=== PATIENT | male | born 1950 | race Caucasian/White ===

== ENCOUNTER 2016-06-02 12:44 | Inpatient (IN) ==
--- NOTE | 2016-06-02 12:54 | Emergency Department Note ---
Disposition Clinical Impression: Decubitus ulcer Qualifiers: Pressure ulcer stage: unspecified pressure ulcer stage Qualified Code(s): L89.90 - Pressure ulcer of unspecified site, unspecified stage Cellulitis Qualifiers: Site of cellulitis: buttock Qualified Code(s): L03.317 - Cellulitis of buttock Disposition: Admitted As Inpatient Referrals: Unassigned,Provider [Non-Partnered Physician] - Forms: ED Satisfaction Letter Time of Disposition: 15:23 Wound/Laceration HPI - General Chief Complaint: ED Wound/Laceration Stated Complaint: wound infection Time Seen by Provider: 06/02/16 12:50 Source: patient, family Mode of arrival: other (Hospital bed) Limitations: no limitations Nursing Notes Reviewed: Yes Vital Signs Reviewed: Yes - History of Present Illness HPI Narrative: 65-year-old who has a decubitus ulcer was seen in wound clinic today and had significant debriding done. I spoke to who states there was tremendous amount of drainage or erythema the wound was significantly debrided and packed and dressing was placed and she would like the patient admitted for IV antibiotics and she will follow along. Onset (ago): day(s) Location: back Mechanism: other ( fell off a ladder several months ago and has had problems with a decubitus ulcer) Associated symptoms: Reports: fever Pain Severity: moderate - Related Data Home Medications Medication Instructions Recorded Confirmed Acetaminophen [Tylenol] 325 mg PO Q6HR PRN 05/16/16 06/02/16 Aspirin [Lo-Dose Aspirin EC] 81 mg PO DAILY 05/16/16 06/02/16 Atorvastatin [Lipitor] 20 mg PO DAILY 05/16/16 06/02/16 Baclofen [Lioresal] 10 mg PO BID 05/16/16 06/02/16 Calcium Polycarbophil [Fiber 625 mg PO BID 05/16/16 06/02/16 Laxative] Carvedilol [Coreg] 25 mg PO BID 05/16/16 06/02/16 Citalopram [CeleXA] 20 mg PO DAILY 05/16/16 06/02/16 Cyclobenzaprine [Flexeril] 10 mg PO TID PRN 05/16/16 06/02/16 Dabigatran [Pradaxa] 150 mg PO BID 05/16/16 06/02/16 Furosemide [Lasix] 20 mg PO DAILY 05/16/16 06/02/16 Gabapentin [Neurontin] 600 mg PO TID 05/16/16 06/02/16 Guaifenesin [Mucinex] 400 mg PO TID 05/16/16 06/02/16 Lactobacillus Acidophilus 1 cap PO TID 05/16/16 06/02/16 [Acidophilus Lactobacillus] Lisinopril [Zestril] 5 mg PO DAILY 05/16/16 06/02/16 Melatonin/Pyridoxine HCl (B6) 6 mg PO HS 05/16/16 06/02/16 [Melatonin 3 mg Tablet] OxyCODONE Immed Rel [Roxicodone 5 5 mg PO Q4HR PRN 05/16/16 06/02/16 MG] Previous Rx's Medication Instructions Recorded Collagenase Oint [Santyl] 1 appl TP DAILY #2 tube 05/17/16 Gentamicin Oint [Garamycin] 1 appl TP DAILY #2 tube 05/17/16 Allergies Allergy/AdvReac Type Severity Reaction Status Date / Time No Known Allergies Allergy Verified 06/02/16 12:52 Constitutional: Reports: fever, chills Eyes: Denies: eye pain, eye discharge, vision change ENT ED: Denies: ear pain, throat pain, dental pain, hearing loss, epistaxis, congestion, dysphagia Cardiovascular: Denies: chest pain, palpitations, dyspnea on exertion, edema, syncope Respiratory: Denies: cough, dyspnea, wheezes, hemoptysis, stridor Gastrointestinal: Denies: abdominal pain, nausea, vomiting, diarrhea, constipation, hematemesis, melena, hematochezia Genitourinary: Denies: urgency, dysuria, frequency, hematuria Musculoskeletal: Reports: back pain. Denies: neck pain, arthralgia, myalgia Integumentary: Denies: rash, abrasion, lesions Neurological: Denies: headache, weakness, numbness, paresthesias, confusion, abnormal gait, vertigo Psychiatric: Denies: anxiety, depression, suicidal thoughts, homicidal thoughts , auditory hallucinations, visual hallucinations Endocrine: Denies: fatigue Hematological/Lymphatic: Denies: easy bleeding, easy bruising Allergic/Immunologic: Denies: facial swelling, urticaria Past Medical History - Past Medical History Medical history: Reports: hyperlipidemia, hypertension, pulmonary embolus, sudden cardiac , other Surgical history: Reports: IVC Filter, orthopedic, other, tracheostomy, other Psychiatric history: Reports: depression - Social History Smoking Status: Former smoker Smokeless Tobacco Status: No Alcohol use: Reports: rarely Drug use: Reports: none Physical Exam - General Limitations: no limitations General appearance: alert, in no apparent distress - Head Head exam: atraumatic, normocephalic, normal inspection - Eye Eye exam: Present: normal appearance, PERRL, EOMI - ENT ENT exam: normal exam, normal oropharynx, mucous membranes moist - Neck Neck exam: Present: normal inspection, full ROM, trachea midline - Chest Chest inspection: Present: normal inspection, symmetric chest wall rise - Respiratory Respiratory exam: Present: normal lung sounds bilaterally - Cardiovascular Cardiovascular exam: Present: regular rate, normal rhythm, normal heart sounds - Abdominal Exam Abdominal exam: Present: soft, Non-Tender. Absent: tenderness, distention, guarding, rebound, rigidity Course Course Narrative: 65-year-old gentleman who comes in with this infected decubitus ulcer that was debrided today by surgery. Surgery feels patient should be admitted and requested admission to the hospitalist. The antibiotics was given. - Consultations Consultation #1: Discussed with , admit. Time: 15:21 Vital Signs Temperature 98.3 F 06/02/16 12:52 Pulse Rate 78 06/02/16 12:52 Respiratory Rate 16 06/02/16 12:52 Blood Pressure 113/66 06/02/16 12:52 O2 Sat by Pulse Oximetry 94 L 06/02/16 12:52 Temperature 98.3 F 06/02/16 12:52 Pulse Rate 81 06/02/16 13:58 Respiratory Rate 17 06/02/16 13:58 Blood Pressure 111/53 06/02/16 13:58 O2 Sat by Pulse Oximetry 95 06/02/16 13:58 Oxygen Delivery Oxygen Delivery Room Air Wound/Laceration - Lab Data Result diagrams: 06/02/16 13:39 06/02/16 13:39 Lab Results 06/02/16 06/02/16 06/02/16 Range/Units 13:39 13:39 13:39 WBC 15.6 H (4.3-11.1) K/mcL RBC 3.41 L (4.19-5.50) M/mcL Hgb 8.8 L (12.9-16.9) g/dL Hct 28.3 L (37.5-50.1) % MCV 83.0 (83.0-100.0) fL MCH 25.8 L (28.0-33.3) pg MCHC 31.1 L (31.6-35.5) g/dL RDW 15.5 H (11.5-14.5) % Plt Count 303 (140-400) K/mcL MPV 9.2 L (9.4-12.4) fL Immature Gran % 1.3 (0-4) % Seg Neutrophils % 86.2 % Lymphocytes % 4.4 % Monocytes % 7.4 % Eosinophils % 0.4 % Basophils % 0.3 % Neutrophils # 13.5 H (1.6-8.9) K/mcL Lymphocytes # 0.7 (0.6-4.6) K/mcL Monocytes # 1.2 (0.0-1.3) K/mcL Eosinophils # 0.1 (0.0-0.6) K/mcL Basophils # 0.1 (0.0-0.2) K/mcL Reactive Lymphocytes Present A (Not Present) Platelet Estimate Normal (Normal) Immature Plt Fraction 1.4 (1.1-6.1) % ESR >= 130 H (0-10) mm/hr Sodium 132 L (136-145) mEq/L Potassium 4.2 (3.5-4.5) mEq/L Chloride 98 (98-109) mEq/L Carbon Dioxide 26 (19-29) mEq/L BUN 12 (8-26) mg/dL Creatinine 0.46 L (0.72-1.25) mg/dL Est GFR ( Amer) > 60 (> 60) Est GFR (Non-Af Amer) > 60 (> 60) BUN/Creatinine Ratio 26 (6-26) Glucose 108 H (70-99) mg/dL Calculated Osmolality 274 L (280-300) Calcium 8.5 L (8.6-10.8) mg/dL Urine Color (Yellow) Urine Clarity (Clear) Urine pH (5.0-8.0) pH Units Ur Specific [place] (1.010-1.025) Urine Protein (Neg-Trace) mg/dL Urine Glucose (UA) (Normal) mg/dL Urine Ketones (Negative) mg/dL Urine Blood (Negative) Urine Nitrite (Negative) Urine Bilirubin (Negative) Urine Urobilinogen (Normal) mg/dL Ur Leukocyte Esterase (Negative) Urine Microscopic RBC (0-3) per hpf Urine Microscopic WBC (0-3) per hpf Ur Squamous Epith Cells (None-Few) per lpf Urine Bacteria (None-Few) per hpf Hyaline Casts (None-Few) per lpf Ur Culture Indicated? (NO) 06/02/16 Range/Units 13:48 WBC (4.3-11.1) K/mcL RBC (4.19-5.50) M/mcL Hgb (12.9-16.9) g/dL Hct (37.5-50.1) % MCV (83.0-100.0) fL MCH (28.0-33.3) pg MCHC (31.6-35.5) g/dL RDW (11.5-14.5) % Plt Count (140-400) K/mcL MPV (9.4-12.4) fL Immature Gran % (0-4) % Seg Neutrophils % % Lymphocytes % % Monocytes % % Eosinophils % % Basophils % % Neutrophils # (1.6-8.9) K/mcL Lymphocytes # (0.6-4.6) K/mcL Monocytes # (0.0-1.3) K/mcL Eosinophils # (0.0-0.6) K/mcL Basophils # (0.0-0.2) K/mcL Reactive Lymphocytes (Not Present) Platelet Estimate (Normal) Immature Plt Fraction (1.1-6.1) % ESR (0-10) mm/hr Sodium (136-145) mEq/L Potassium (3.5-4.5) mEq/L Chloride (98-109) mEq/L Carbon Dioxide (19-29) mEq/L BUN (8-26) mg/dL Creatinine (0.72-1.25) mg/dL Est GFR ( Amer) (> 60) Est GFR (Non-Af Amer) (> 60) BUN/Creatinine Ratio (6-26) Glucose (70-99) mg/dL Calculated Osmolality (280-300) Calcium (8.6-10.8) mg/dL Urine Color Yellow (Yellow) Urine Clarity Clear (Clear) Urine pH 7.0 (5.0-8.0) pH Units Ur Specific [place] 1.012 (1.010-1.025) Urine Protein Negative (Neg-Trace) mg/dL Urine Glucose (UA) Normal (Normal) mg/dL Urine Ketones Negative (Negative) mg/dL Urine Blood Large H (Negative) Urine Nitrite Negative (Negative) Urine Bilirubin Negative (Negative) Urine Urobilinogen 2.0 H (Normal) mg/dL Ur Leukocyte Esterase Negative (Negative) Urine Microscopic RBC 50-100 H (0-3) per hpf Urine Microscopic WBC 0-3 (0-3) per hpf Ur Squamous Epith Cells Moderate H (None-Few) per lpf Urine Bacteria None Seen (None-Few) per hpf Hyaline Casts None Seen (None-Few) per lpf Ur Culture Indicated? NO (NO) - EKG Data EKG attestation: Yes I reviewed and interpreted this EKG. EKG shows normal: sinus rhythm Rate: normal Rhythm: NSR Interpretation: no acute changes
[2016-06-02] MEDS ORDERED: *HR* Morphine 2 MG/ML SYRINGE IVP ONE (13:41)
[2016-06-02] MEDS ORDERED: *HR* Promethazine 25 MG/ML VIAL IVP ONE (13:41)
[2016-06-02 13:50] LABS: Basophils % 0.3 %; Eosinophils # 0.1 K/mcL (0.0-0.6); Eosinophils % 0.4 %; Hematocrit 28.3 % (37.5-50.1); Hemoglobin 8.8 g/dL (12.9-16.9); Immature Granulocytes % 1.3 % (0-4); Immature Platelets 1.4 % (1.1-6.1); Lymphocytes # 0.7 K/mcL (0.6-4.6); Lymphocytes % 4.4 %; Mean Corpuscular HGB Conc 31.1 g/dL (31.6-35.5); Mean Corpuscular Hemoglobin 25.8 pg (28.0-33.3); Mean Platelet Volume 9.2 fL (9.4-12.4); Monocytes # 1.2 K/mcL (0.0-1.3); Monocytes % 7.4 %; Platelet Count 303 K/mcL (140-400); Red Blood Count 3.41 M/mcL (4.19-5.50); Red Cell Distribution Width 15.5 % (11.5-14.5); Segmented Neutrophils % 86.2 %
[2016-06-02 13:52] LABS: Basophils # 0.1 K/mcL (0.0-0.2); Neutrophils # 13.5 K/mcL (1.6-8.9)
[2016-06-02 13:58] LABS: Bilirubin,Urine Negative (Negative); Blood,Urine Large (Negative); Clarity,Urine Clear (Clear); Color,Urine Yellow (Yellow); Glucose,Urine (UA) Normal (Normal); Ketones,Urine Negative (Negative); Leukocyte Esterase,Urine Negative (Negative); Nitrite,Urine Negative (Negative); Protein,Urine Negative (Neg-Trace); Specific Gravity,Urine 1.012 (1.010-1.025)
[2016-06-02 14:02] LABS: Bacteria,Urine None Seen per hpf (None-Few); Hyaline Casts,Urine None Seen per lpf (None-Few); RBC,Urine 50-100 per hpf (0-3); Squamous Epithelial Cell,Urine Moderate per lpf (None-Few); WBC,Urine 0-3 per hpf (0-3)
[2016-06-02 14:04] LABS: BUN/Creatinine Ratio 26 (6-26); Blood Urea Nitrogen 12 mg/dL (8-26); Calcium 8.5 mg/dL (8.6-10.8); Carbon Dioxide 26 mEq/L (19-29); Chloride 98 mEq/L (98-109); Glucose 108 mg/dL (70-99); Osmolality,Calculated 274 (280-300); Potassium 4.2 mEq/L (3.5-4.5); Sodium 132 mEq/L (136-145); eGFR For African Americans > 60 (> 60); eGFR For Non-African Americans > 60 (> 60)
[2016-06-02] MEDS ORDERED: Piperacillin/Tazobactam 3.375 GM in D5% in Water (Mini-Bag+) 100 ML IVPB ONE (14:14)
[2016-06-02 14:31] LABS: Platelet Estimate Normal (Normal); Reactive Lymphocytes Present (Not Present)
--- NOTE | 2016-06-02 15:36 | Internal Med History&Physical ---
<Luke Yarbrough - Last Filed: 06/02/16 16:35> Date of Encounter: 06/02/16 Time of Encounter: 15:00 Assessment and Plan (1) Cellulitis Current visit: Yes Status: Acute - Secondary to sacral decubitus ulcer. - Leukocytosis noted. - Wound culture pending. - Will start Unazyn IV q6H. - Continue to monitor. Qualifiers: Site of cellulitis: buttock Qualified Code(s): L03.317 - Cellulitis of buttock (2) Decubitus ulcer Current visit: No Status: Chronic - Chronic sacral decubitus ulcer status some debridement & packing at wound care clinic. - Dr Mayorga on board and plans to reevaluate possible need of more surgical debridement while treating patient with IV antibiotic. Qualifiers: Pressure ulcer stage: stage III Qualified Code(s): L89.93 - Pressure ulcer of unspecified site, stage 3 (3) Anemia Current visit: No Status: Chronic - Chronic normocytic anemia with Hgb 8.8 today. - Continue to monitor H&H. Qualifiers: Anemia type: unspecified type Qualified Code(s): D64.9 - Anemia, unspecified (4) Paraplegia Current visit: No Status: Chronic - Due to back injury secondary to fall in November 2015. (5) DVT prophylaxis Current visit: Yes Status: Acute - Will hold Pradaxa for now given potential need of more surgical debridement. - Start SQ heparin. Internal Medicine - H&P: HPI Chief complaint: Wound infection Admitted From: Home Plans for Post Hospital Care: Home History of present illness: Mr. Orellana is a 65 year old male with PMH of HTN and quadriplegic secondary a fall in November 2015. Patient was sent by Dr. Mayorga from wound care clinic to ED. Per , the sacral decubitus ulcer has tremendous amount of drainage and erythema. The wound was debrided and packed and dressing was placed but she would like the patient admitted for IV antibiotics and she will reevaluate for possible need of debridement in OR. Due to his back injury, patient doesn't feel any pain from the sacral decubitus ulcer. Per patient's at bedside, Dr. Mayorga even mentioned that patient may not need anesthesia for surgical debridement. Patient denies fever, chills, nausea, vomiting, chest pain, shortness of breath, cough, abdominal pain, diarrhea. Patient does have chronic neck pain. Patient denies known cardiac problem. But patient's mentioned that patient developed PE during his stay at [facility] and leaded cardiac dysfunction requiring ECMO for several days. Past Med Surg Social Fam HX - Past Medical History Medical history: hyperlipidemia, hypertension, pulmonary embolus, sudden cardiac , other Psychiatric history: depression - Past Surgical History Surgical History: IVC Filter, orthopedic, other, tracheostomy, other - Social History Smoking Status: Former smoker Smokeless Tobacco Status: No Alcohol use: rarely Drug use: none - Family History Mother Living Status: Hx Family Endocrine Disorder: Yes (diabetic) Internal Medicine - H&P: Meds Acetaminophen [Tylenol] 325 mg PO Q6HR PRN 05/16/16 [History] Aspirin [Lo-Dose Aspirin EC] 81 mg PO DAILY 05/16/16 [History] Atorvastatin [Lipitor] 20 mg PO DAILY 05/16/16 [History] Baclofen [Lioresal] 10 mg PO BID 05/16/16 [History] Calcium Polycarbophil [Fiber Laxative] 625 mg PO BID 05/16/16 [History] Carvedilol [Coreg] 25 mg PO BID 05/16/16 [History] Citalopram [CeleXA] 20 mg PO DAILY 05/16/16 [History] Cyclobenzaprine [Flexeril] 10 mg PO TID PRN 05/16/16 [History] Dabigatran [Pradaxa] 150 mg PO BID 05/16/16 [History] Furosemide [Lasix] 20 mg PO DAILY 05/16/16 [History] Gabapentin [Neurontin] 600 mg PO TID 05/16/16 [History] Guaifenesin [Mucinex] 400 mg PO TID 05/16/16 [History] Lactobacillus Acidophilus [Acidophilus Lactobacillus] 1 cap PO TID 05/16/16 [ History] Lisinopril [Zestril] 5 mg PO DAILY 05/16/16 [History] Melatonin/Pyridoxine HCl (B6) [Melatonin 3 mg Tablet] 6 mg PO HS 05/16/16 [ History] OxyCODONE Immed Rel [Roxicodone 5 MG] 5 mg PO Q4HR PRN 05/16/16 [History] Collagenase Oint [Santyl] 1 appl TP DAILY #2 tube 05/17/16 [Rx] Gentamicin Oint [Garamycin] 1 appl TP DAILY #2 tube 05/17/16 [Rx] Allergies No Known Allergies Allergy (Verified 06/02/16 12:52) All Systems PM: A 10-system review of systems was performed and is negative for pertinent findings except as documented above in the HPI. - Constitutional Constitutional: no anorexia, no chills, no fever(s) - EENT Eyes: no change in vision Ears: no decreased hearing Nose, mouth and throat: no dysphagia - Cardiovascular Cardiovascular ROS IM: edema, no chest pain, no palpitations, no syncope - Respiratory Respiratory: no cough, no dyspnea, no hemoptysis - Gastrointestinal Gastrointestinal: no abdominal pain, no diarrhea, no nausea, no vomiting - Musculoskeletal Musculoskeletal ROS IM: neck pain - Integumentary Integumentary IM: skin ulcer (Sacral decubitus ulcer) - Neurological Neurological ROS: other (Patient is quadraplegic and has no sensation below upper abdomen.) - Hematologic/Lymphatic Hematologic/Lymphatic: no easy bleeding, no easy bruising - Constitutional Vitals: Temp Pulse Resp BP Pulse Ox 98.3 F 81 17 111/53 95 06/02/16 12:52 06/02/16 13:58 06/02/16 13:58 06/02/16 13:58 06/02/16 13:58 General appearance: Present: cooperative, A&O X 3, no acute distress, answers questions appropriately - Head Head exam: Present: atraumatic, normocephalic - Eye Eye exam: Present: PERRL, conjuntiva pink, sclera anicteric Pupils: Present: PERRL - Neck Neck exam general surgery: Present: supple, trachea midline. Absent: lymphadenopathy - Respiratory Respiratory exam: Present: CTAB. Absent: accessory muscle use, rales, rhonchi, wheezes - Cardiovascular Cardiovascular exam: Present: RRR, +S1, +S2. Absent: diastolic murmur, gallop, rubs, systolic murmur - GI/Abdominal GI/Abdominal exam: Present: normal bowel sounds, soft, no peritoneal signs. Absent: distended, tenderness - Extremities Exam Extremities exam: Present: warm, radial pulses palpable and symetrical. Absent : calf tenderness, cyanotic, pedal edema - Neurological Exam Neurological exam: Present: alert, oriented X3 Additional comments: Patient is quadraplegic and has no sensation below upper abdomen. - Skin Additional comments: Sacral decubitus ulcers covered with dressing. Internal Med - H&P Results - Labs CBC & Chem 7: 06/02/16 13:39 06/02/16 13:39 Labs: Short CBC 06/02/16 Range/Units 13:39 WBC 15.6 H (4.3-11.1) K/mcL Hgb 8.8 L (12.9-16.9) g/dL Hct 28.3 L (37.5-50.1) % Plt Count 303 (140-400) K/mcL Neutrophils # 13.5 H (1.6-8.9) K/mcL BMP 06/02/16 13:39 Sodium 132 L Potassium 4.2 Chloride 98 Carbon Dioxide 26 BUN 12 Creatinine 0.46 L Glucose 108 H Calcium 8.5 L Urine 06/02/16 Range/Units 13:48 Urine Color Yellow (Yellow) Urine Clarity Clear (Clear) Urine pH 7.0 (5.0-8.0) pH Units Ur Specific [place] 1.012 (1.010-1.025) Urine Protein Negative (Neg-Trace) mg/dL Urine Glucose (UA) Normal (Normal) mg/dL - Impressions ITS Impressions Chest X-Ray 06/02/16 12:50 IMPRESSION: No acute cardiopulmonary disease. D/ / Xavier Almaraz MD / Xavier Almaraz MD Interpreting Provider: Xavier Almaraz MD <Jeremie Maier - Last Filed: 06/02/16 17:49> Date of Encounter: 06/02/16 Internal Medicine - H&P: HPI History of present illness: Mr. Orellana is a 65 year old male All Systems PM: A 10-system review of systems was performed and is negative for pertinent findings except as documented above in the HPI. - Constitutional Vitals: Temp Pulse Resp BP Pulse Ox 98.9 F 84 16 117/66 96 06/02/16 17:42 06/02/16 17:42 06/02/16 17:42 06/02/16 17:42 06/02/16 17:42 Internal Med - H&P Results - Labs CBC & Chem 7: 06/02/16 13:39 06/02/16 13:39 - Attending Attestation I have seen and examined this patient independently. I have discussed the case with the resident, Dr. Yarbrough. I agree with the data gathering in the HPI, physical examination findings, assessment and plan as documented by the resident. Infected sacral wound, will give iv antibiotics (unasyn), consult surgery for possible debridement. D/W surgical team, recommends to hold pradaxa for now, will give heparin for dvt prophylaxis in the meantime. The plan of care was discussed in detail with the patient and family member, they expressed understanding.
[2016-06-02] MEDS: Lactobacillus 1 EACH CAP.SPRINK PO SCH ×2 (16:40→20:35)
[2016-06-02] MEDS: Ampicillin/Sulbactam 3,000 MG in 0.9 % Sodium Chloride Mini Bag 100 ML IVPB SCH (20:31)
[2016-06-02] MEDS: GuaiFENesin Liq 200 MG/10 ML UDC PO SCH (20:35)
[2016-06-02] MEDS: Baclofen 10 MG TABLET PO SCH (20:35)
[2016-06-03] MEDS: *HR* Heparin 5,000 UNIT/ML VIAL SQ SCH ×3 (00:31→18:03)
[2016-06-03] MEDS: Ampicillin/Sulbactam 3,000 MG in 0.9 % Sodium Chloride Mini Bag 100 ML IVPB SCH ×4 (01:50→21:46)
[2016-06-03] MEDS: *HR* OxyCODONE Immed Rel 5 MG TABLET PO PRN ×2 (05:10→14:01)
[2016-06-03 06:28] LABS: Basophils # 0.1 K/mcL (0.0-0.2); Basophils % 0.5 %; Eosinophils # 0.2 K/mcL (0.0-0.6); Eosinophils % 1.3 %; Hematocrit 26.1 % (37.5-50.1); Hemoglobin 8.3 g/dL (12.9-16.9); Immature Granulocytes % 2.2 % (0-4); Lymphocytes # 1.3 K/mcL (0.6-4.6); Lymphocytes % 10.7 %; Mean Corpuscular HGB Conc 31.8 g/dL (31.6-35.5); Mean Corpuscular Hemoglobin 26.2 pg (28.0-33.3); Mean Corpuscular Volume 82.3 fL (83.0-100.0); Mean Platelet Volume 9.6 fL (9.4-12.4); Monocytes # 0.8 K/mcL (0.0-1.3); Neutrophils # 9.3 K/mcL (1.6-8.9); Platelet Count 275 K/mcL (140-400); Red Blood Count 3.17 M/mcL (4.19-5.50); Red Cell Distribution Width 15.3 % (11.5-14.5); Segmented Neutrophils % 78.3 %
[2016-06-03 06:41] LABS: Platelet Estimate Normal (Normal)
[2016-06-03 06:42] LABS: Reactive Lymphocytes Present (Not Present)
[2016-06-03 06:43] LABS: Alanine Aminotransferase 58 Units/L (0-55); Albumin 1.7 g/dL (3.5-5.0); Albumin/Globulin Ratio 0.4 (1.1-2.2); Alkaline Phosphatase 225 Units/L (38-126); Aspartate Amino Transferase 47 Units/L (5-34); BUN/Creatinine Ratio 24 (6-26); Bilirubin,Total 0.5 mg/dL (0.2-1.2); Blood Urea Nitrogen 12 mg/dL (8-26); Calcium 8.5 mg/dL (8.6-10.8); Carbon Dioxide 27 mEq/L (19-29); Chloride 100 mEq/L (98-109); Globulin 4.2 g/dL (2.4-3.5); Glucose 95 mg/dL (70-99); Osmolality,Calculated 278 (280-300); Sodium 134 mEq/L (136-145); Total Protein 5.9 g/dL (6.0-8.3); eGFR For African Americans > 60 (> 60); eGFR For Non-African Americans > 60 (> 60)
[2016-06-03] MEDS ORDERED: 0.9 % Sodium Chloride Mini Bag 100 ML ONE (08:23)
[2016-06-03] MEDS: GuaiFENesin Liq 200 MG/10 ML UDC PO SCH ×5 (08:30→21:47)
[2016-06-03] MEDS: Furosemide 20 MG TABLET PO SCH ×2 (08:30→09:27)
[2016-06-03] MEDS: Lactobacillus 1 EACH CAP.SPRINK PO SCH ×3 (08:30→21:47)
[2016-06-03] MEDS: Baclofen 10 MG TABLET PO SCH ×3 (08:30→21:47)
[2016-06-03] MEDS ORDERED: Gentamicin Oint 15 GM TUBE TP SCH (09:00)
[2016-06-03] MEDS ORDERED: Aspirin Enteric Coated 81 MG Tablet PO SCH (09:00)
--- NOTE | 2016-06-03 12:59 | Internal Med Progress Note ---
<CorcoranLuther Mp - Last Filed: 06/03/16 13:12> Date of Encounter: 06/03/16 Time of Encounter: 13:00 - Assessment and plan (1) Cellulitis Current Visit: Yes Status: Acute Assessment and plan: Cellulitis 2/2 stage 4 decubitis ulcer. Afebrile, vitals WNL. Erythematous, tender. Topical Gentamycin and IV unasyn IVq6h Wound culture pending Leukocytosis improving Possibly to OR today for debridement per surgery. Pain control monitor cbc Qualifiers: Site of cellulitis: other site Qualified Code(s): L03.818 - Cellulitis of other sites (2) Pressure ulcer of sacral region, stage 4 Current Visit: No Status: Acute Assessment and plan: Chronic sacral decubitus ulcer status some debridement & packing at wound care clinic. Dr Mayorga on board and plans to reevaluate possible need of more surgical debridement while treating patient with IV antibiotics (3) Anemia Current Visit: No Status: Chronic Assessment and plan: Appears to have new normocytic anemia. Hgb trending down. 8.8 to 8.3 today. Iron studies pending may need blood tx if Hgb <7 Qualifiers: Anemia type: unspecified type Qualified Code(s): D64.9 - Anemia, unspecified (4) Paraplegia Current Visit: No Status: Chronic Assessment and plan: Due to back injury secondary to fall in November 2015. Continue to hold Pradaxa as may need surgical debridement. SQ heparin. (5) DVT prophylaxis Current Visit: Yes Status: Acute - Subjective Interval history: Patient seen and examined. 65 yo paraplegic with stage 4 decubitis ulcer. Was seen in outpatient wound clinic by Dr. Mayorga and sent to ED for admission d/t ulcer. Patient laying in bed in mild distress. at bedside, who is his primary computer support specialist. States since he became paraplegic this summer he goes between being extremely hot/sweaty, to extremely cold often. Pt. states minor pain right now. Vital signs stable. Afebrile. - Constitutional Vitals: Temp Pulse Resp BP Pulse Ox 98.1 F 70 16 119/70 97 06/03/16 12:40 06/03/16 12:40 06/03/16 12:40 06/03/16 12:40 06/03/16 12:40 General appearance: Present: cooperative, A&O X 3, no acute distress, answers questions appropriately - Head Head exam: Present: atraumatic, normocephalic - Eye Eye exam: Present: PERRL, conjuntiva pink, sclera anicteric Pupils: Present: PERRL - Neck Neck exam general surgery: Present: supple, trachea midline. Absent: lymphadenopathy - Respiratory Respiratory exam: Present: CTAB. Absent: accessory muscle use, rales, rhonchi, wheezes - Cardiovascular Cardiovascular exam: Present: RRR, +S1, +S2. Absent: diastolic murmur, gallop, rubs, systolic murmur - GI/Abdominal GI/Abdominal exam: Present: normal bowel sounds, soft, no peritoneal signs. Absent: distended, tenderness - Extremities Exam Extremities exam: Absent: full ROM, normal inspection (paraplegic. B/l LE atrophy) - Skin Skin exam: Present: dry, intact Internal Medicine: Result - Labs CBC & Chem 7: 06/03/16 06:05 06/03/16 06:05 Labs: Short CBC 06/03/16 Range/Units 06:05 WBC 11.9 H (4.3-11.1) K/mcL Hgb 8.3 L (12.9-16.9) g/dL Hct 26.1 L (37.5-50.1) % Plt Count 275 (140-400) K/mcL Neutrophils # 9.3 H (1.6-8.9) K/mcL BMP 06/03/16 06:05 Sodium 134 L Potassium 4.0 Chloride 100 Carbon Dioxide 27 BUN 12 Creatinine 0.50 L Glucose 95 Calcium 8.5 L Liver Function 06/03/16 Range/Units 06:05 Total Bilirubin 0.5 (0.2-1.2) mg/dL AST 47 H (5-34) Units/L ALT 58 H (0-55) Units/L Alkaline Phosphatase 225 H (38-126) Units/L Albumin 1.7 L (3.5-5.0) g/dL Consult Discharge Plan - Plan Referrals: Anna Dunham, DREDGE OPERATOR [Primary Care Provider] - <Sesar Oquendo - Last Filed: 06/03/16 13:58> Date of Encounter: 06/03/16 - Constitutional Vitals: Temp Pulse Resp BP Pulse Ox 98.1 F 70 16 119/70 97 06/03/16 12:40 06/03/16 12:40 06/03/16 12:40 06/03/16 12:40 06/03/16 12:40 Internal Medicine: Result - Labs CBC & Chem 7: 06/03/16 06:05 06/03/16 06:05 Labs: Short CBC 06/03/16 Range/Units 06:05 WBC 11.9 H (4.3-11.1) K/mcL Hgb 8.3 L (12.9-16.9) g/dL Hct 26.1 L (37.5-50.1) % Plt Count 275 (140-400) K/mcL Neutrophils # 9.3 H (1.6-8.9) K/mcL BMP 06/03/16 06:05 Sodium 134 L Potassium 4.0 Chloride 100 Carbon Dioxide 27 BUN 12 Creatinine 0.50 L Glucose 95 Calcium 8.5 L Liver Function 06/03/16 Range/Units 06:05 Total Bilirubin 0.5 (0.2-1.2) mg/dL AST 47 H (5-34) Units/L ALT 58 H (0-55) Units/L Alkaline Phosphatase 225 H (38-126) Units/L Albumin 1.7 L (3.5-5.0) g/dL - Attending Attestation I examined this patient and my medical decision-making was reviewed with Dr. Corcoran. I agree with the documented findings, disposition and treatment plan as described except to the extent set forth below. Pt. reports feeling cold and having chills. CTAB. 1. Stage IV Decub ulcer - For OR tomorrow. Surgery on board. IV abx. High risk due to need for surgical intervention for treatment of his infection and need for IV abx. 2. Chronic anemia Patient does not have DM-2, CKD, CHF or CAD. He is at low risk for a low risk procedure. Medically optimized for surgery tomorrow. Sesar Oquendo MD
--- NOTE | 2016-06-03 13:42 | General Surgery Consult Note ---
Date of Encounter: 06/03/16 Time of Encounter: 12:00 Assessment and Plan (1) Leukocytosis Current Visit: Yes Status: Acute due to infected sacral wound, on abx per hospitalist, will trend wbc count, is decreasing Qualifiers: Leukocytosis type: unspecified Qualified Code(s): D72.829 - Elevated white blood cell count, unspecified (2) History of pulmonary embolism Current Visit: Yes Status: Acute hold pradax for OR tomorrow, on heparin sq (3) Cellulitis Current Visit: Yes Status: Acute continue Abx Qualifiers: Site of cellulitis: other site Qualified Code(s): L03.818 - Cellulitis of other sites (4) Pressure ulcer of sacral region, stage 4 Current Visit: No Status: Acute continue BID Dakins 0.25% moist kerlix packing into wound, covered with ABD's and secure with medipore tape will plan further OR debridement tomorrow, risks and benefits discussed and they wish to proceed History of Present Illness Consult date: 06/03/16 Reason for consult: wound care History of present illness: Pt is a 65 yo male s/p traumatic fall this summer with resulting paraplegia. He presented to my wound care office yesterday with a large sacral infected and necrotic foul smelling wound. I was able to debride a large amount of the necrosis yesterday at bedside at wound care but patient was on pradaxa. He had surrounding cellulitis to the wound as was sent to the ER for admission for IV antibiotics. He has had the wound present in some form for a few weeks now. Wound care has been santyl and gentamicin and home care has been seeing patient weekly. Past Med Surg Social Fam HX - Past Medical History Medical history: hyperlipidemia, hypertension, pulmonary embolus, sudden cardiac , other Psychiatric history: depression - Past Surgical History Surgical History: IVC Filter, orthopedic, other, tracheostomy, other - Social History Smoking Status: Former smoker Smokeless Tobacco Status: No Alcohol use: rarely Drug use: none - Family History Mother Living Status: Hx Family Endocrine Disorder: Yes (diabetic) Medications and Allergies Acetaminophen [Tylenol] 325 mg PO Q6HR PRN 05/16/16 [History] Aspirin [Lo-Dose Aspirin EC] 81 mg PO DAILY 05/16/16 [History] Atorvastatin [Lipitor] 20 mg PO DAILY 05/16/16 [History] Baclofen [Lioresal] 10 mg PO BID 05/16/16 [History] Calcium Polycarbophil [Fiber Laxative] 625 mg PO BID 05/16/16 [History] Carvedilol [Coreg] 25 mg PO BID 05/16/16 [History] Citalopram [CeleXA] 20 mg PO DAILY 05/16/16 [History] Cyclobenzaprine [Flexeril] 10 mg PO TID PRN 05/16/16 [History] Dabigatran [Pradaxa] 150 mg PO BID 05/16/16 [History] Furosemide [Lasix] 20 mg PO DAILY 05/16/16 [History] Gabapentin [Neurontin] 600 mg PO TID 05/16/16 [History] Guaifenesin [Mucinex] 400 mg PO TID 05/16/16 [History] Lactobacillus Acidophilus [Acidophilus Lactobacillus] 1 cap PO TID 05/16/16 [ History] Lisinopril [Zestril] 5 mg PO DAILY 05/16/16 [History] Melatonin/Pyridoxine HCl (B6) [Melatonin 3 mg Tablet] 6 mg PO HS 05/16/16 [ History] OxyCODONE Immed Rel [Roxicodone 5 MG] 5 mg PO Q4HR PRN 05/16/16 [History] Collagenase Oint [Santyl] 1 appl TP DAILY #2 tube 05/17/16 [Rx] Gentamicin Oint [Garamycin] 1 appl TP DAILY #2 tube 05/17/16 [Rx] Allergies No Known Allergies Allergy (Verified 06/02/16 12:52) Review of Systems All systems PM: A 10-system review of systems was performed and is negative for pertinent findings except as documented above in the HPI. General Surgery Exam Initial Vital Signs Temp Pulse Resp BP Pulse Ox 98.3 F 78 16 113/66 94 L 06/02/16 12:52 06/02/16 12:52 06/02/16 12:52 06/02/16 12:52 06/02/16 12:52 - General physical appearance well developed, well nourished, no distress - Eyes PERRL, normal ocular movement - ENT normal mucosa, atraumatic, normocephalic - Neck trachea midline - Respiratory normal expansion, clear to auscultation - Cardiovascular Cardiovascular exam: Present: RRR, no murmurs/rubs/gallops - Abdomen Abdomen general surgery: Present: bowel sounds present, soft, non tender - Integumentary Integumentary general surgery: Present: other (large foul smelling necrotic sacral wound 14 cm L x 13 cm W x 4 cm deep with 95% slough and 5 % granulation tissue, large amount serous drainage) - Neurologic Present: CN 2-12 grossly intact - Musculoskeletal Present: other (quadraplegia) - Psychiatric Psychiatric general surgery: Present: A&Ox3, speech is normal Exam Initial Vital Signs Temp Pulse Resp BP Pulse Ox 98.3 F 78 16 113/66 94 L 06/02/16 12:52 06/02/16 12:52 06/02/16 12:52 06/02/16 12:52 06/02/16 12:52 Results - Labs 06/03/16 06:05 06/03/16 06:05 Short CBC 06/03/16 06/02/16 Range/Units 06:05 13:39 WBC 11.9 H 15.6 H (4.3-11.1) K/mcL Hgb 8.3 L 8.8 L (12.9-16.9) g/dL Hct 26.1 L 28.3 L (37.5-50.1) % Plt Count 275 303 (140-400) K/mcL Neutrophils # 9.3 H 13.5 H (1.6-8.9) K/mcL BMP 06/03/16 06/02/16 Range/Units 06:05 13:39 Sodium 134 L 132 L (136-145) mEq/L Potassium 4.0 4.2 (3.5-4.5) mEq/L Chloride 100 98 (98-109) mEq/L Carbon Dioxide 27 26 (19-29) mEq/L BUN 12 12 (8-26) mg/dL Creatinine 0.50 L 0.46 L (0.72-1.25) mg/dL Glucose 95 108 H (70-99) mg/dL Calcium 8.5 L 8.5 L (8.6-10.8) mg/dL Liver Function 06/03/16 Range/Units 06:05 Total Bilirubin 0.5 (0.2-1.2) mg/dL AST 47 H (5-34) Units/L ALT 58 H (0-55) Units/L Alkaline Phosphatase 225 H (38-126) Units/L Albumin 1.7 L (3.5-5.0) g/dL Urine 06/02/16 Range/Units 13:48 Urine Color Yellow (Yellow) Urine Clarity Clear (Clear) Urine pH 7.0 (5.0-8.0) pH Units Ur Specific [place] 1.012 (1.010-1.025) Urine Protein Negative (Neg-Trace) mg/dL Urine Glucose (UA) Normal (Normal) mg/dL Vital Signs Temp Pulse Resp BP Pulse Ox 06/03/16 12:40 98.1 F 70 16 119/70 97 06/03/16 08:56 95 06/03/16 07:59 97.5 F L 83 16 125/69 95 06/03/16 00:53 98.6 F 80 18 124/68 97 06/02/16 20:46 94 L 06/02/16 20:08 99.1 F 85 18 125/68 96 06/02/16 17:42 98.9 F 84 16 117/66 96 06/02/16 15:47 16 91/60 06/02/16 15:37 78 91/60 94 L 06/02/16 13:58 81 17 111/53 95 Intake and Output 06/02/16 06/03/16 06/03/16 23:59 07:59 15:59 Intake Total 520 / 520 220 / 220 100 / 100 Output Total 500 / 500 450 / 450 175 / 175 Balance 20 / 20 -230 / -230 -75 / -75 Intake: IV Fluids 100 / 100 100 / 100 100 / 100 Unasyn 3,000 MG In 0.9 % 100 / 100 100 / 100 100 / 100 Sodium Chloride (Mini-Bag +) 100 ML @ 200 mls/hr IVPB Q6H [facility] Rx#: [id number] Oral 420 / 420 120 / 120 Output: Catheter 500 / 500 450 / 450 175 / 175 Other: Meal Dinner NPO Percent of Meal Consumed 90% Stool Size Small Stool Consistency soft Stool Color Brown # Bowel Movements 1 Blood Glucose* 106 113 Consult Discharge Plan - Plan Referrals: Anna Dunham, CORE DRILLING SUPERVISOR [Primary Care Provider] -
[2016-06-03 13:48] LABS: Immature Reticulocyte % 14.1 % (11.0-38.0); Retculocyte # 0.03 M/mcL (0.05-0.10); Reticulocyte % 0.6 % (1.6-2.8)
[2016-06-03 14:34] LABS: % Iron Saturation 11 % (20-55); Iron 15 mcg/dL (65-175); Transferrin 101 mg/dL (174-364)
--- NOTE | 2016-06-03 18:10 | Anesthesia Evaluation PreOp ---
Date of Encounter: 06/04/16 Time of Encounter: 18:10 - Past History Planned Operation: I&D sacral decubitus ulcer Cardiac History: HTN (mantained on Carvedilol, Lisinopril), Hyperlipidemia ( maintaine don Lipitor), Cardiac Surgery (S/P trauma [hospitalized at [facility]] pt developed PE, Cardiac dysfunction/Arrest requiring ECMO for several days.), Other (Normocytic Anemia) Pulmonary History: Former smoker COURT MAGISTRATE History: Paresis (Quadriplegic s/p traumatic fall Summer 11/2015. Pt is insensate below level of upper abdomen.), Other (Chronic pain maintained on Gabapentin, Baclofen. Anxiety/Depression maintained on Celexa) Other Medical History: Bleeding (Hx PE/DVT s/p IVC filter, maintained on Pradaxa ) Anesthesia History: No Prior Anesthetic Complications, Past Anesthesia ( Orthopedic surgeries, IVC filter, Trach) Alcohol Use: rarely Drug use: none Medications and Allergies Acetaminophen [Tylenol] 325 mg PO Q6HR PRN 05/16/16 [History] Aspirin [Lo-Dose Aspirin EC] 81 mg PO DAILY 05/16/16 [History] Atorvastatin [Lipitor] 20 mg PO DAILY 05/16/16 [History] Baclofen [Lioresal] 10 mg PO BID 05/16/16 [History] Calcium Polycarbophil [Fiber Laxative] 625 mg PO BID 05/16/16 [History] Carvedilol [Coreg] 25 mg PO BID 05/16/16 [History] Citalopram [CeleXA] 20 mg PO DAILY 05/16/16 [History] Cyclobenzaprine [Flexeril] 10 mg PO TID PRN 05/16/16 [History] Dabigatran [Pradaxa] 150 mg PO BID 05/16/16 [History] Furosemide [Lasix] 20 mg PO DAILY 05/16/16 [History] Gabapentin [Neurontin] 600 mg PO TID 05/16/16 [History] Guaifenesin [Mucinex] 400 mg PO TID 05/16/16 [History] Lactobacillus Acidophilus [Acidophilus Lactobacillus] 1 cap PO TID 05/16/16 [ History] Lisinopril [Zestril] 5 mg PO DAILY 05/16/16 [History] Melatonin/Pyridoxine HCl (B6) [Melatonin 3 mg Tablet] 6 mg PO HS 05/16/16 [ History] OxyCODONE Immed Rel [Roxicodone 5 MG] 5 mg PO Q4HR PRN 05/16/16 [History] Collagenase Oint [Santyl] 1 appl TP DAILY #2 tube 05/17/16 [Rx] Gentamicin Oint [Garamycin] 1 appl TP DAILY #2 tube 05/17/16 [Rx] Allergies No Known Allergies Allergy (Verified 06/02/16 12:52) - Meds/Allergy Pre-op Review Medications Reviewed: Yes Allergies Reviewed: Yes Beta Blockers on Current Med List: Yes (Carvedilol) Anesthesia Results - Labs 06/04/16 03:57 06/04/16 03:57 Laboratory Tests 06/03/16 06:05 Est GFR (Non-Af Amer) > 60 Laboratory Results Impressions Chest X-Ray 06/02/16 12:50 IMPRESSION: No acute cardiopulmonary disease. D/ / Xavier Almaraz MD / Xavier Almaraz MD Interpreting Provider: Xavier Almaraz MD - Imaging EKG: image reviewed (87bpm SR, moderated intraventricular conduction delay) Anesthesia Exam Vital Signs Temp Pulse Resp BP Pulse Ox 06/04/16 06:37 97.4 F L 72 16 133/72 94 L 06/04/16 03:37 97.6 F 93 16 129/87 98 06/03/16 23:39 97.7 F 78 16 159/75 97 06/03/16 19:08 97.7 F 81 16 145/81 98 06/03/16 15:19 97.5 F L 85 16 185/68 99 06/03/16 12:40 98.1 F 70 16 119/70 97 06/03/16 08:56 95 Intake and Output 06/03/16 06/04/16 06/04/16 23:59 07:59 15:59 Intake Total 320 / 320 100 / 100 Output Total 250 / 250 100 / 100 Balance 70 / 70 0 / 0 Intake: IV Fluids 200 / 200 100 / 100 Unasyn 3,000 MG In 0.9 % 200 / 200 100 / 100 Sodium Chloride (Mini-Bag +) 100 ML @ 200 mls/hr IVPB Q6H [facility] Rx#: [id number] Oral 120 / 120 0 / 0 Output: Catheter 250 / 250 100 / 100 Other: Meal Dinner Percent of Meal Consumed 5% # Bowel Movement Diapers 0 Blood Glucose* 122 Height: 6'0" Weight: 220# NPO (# of Hours): MNoc - HEENT Pupil (Motor): Pupils equal, EOMI Mallampati: II Teeth: Normal Oral Opening: Greater than 3 - COURT MAGISTRATE LOC: Oriented COURT MAGISTRATE Motor: Normal Face, Deficit RUE, Deficit LUE, Deficit RLE, Deficit LLE COURT MAGISTRATE Sensory: Normal: Face, Deficit: RUE, LUE, RLE, LLE - Cardiac Rhythm: Regular Murmur: None - Pulmonary Breath Sounds: bilateral Clear Respiratory Effort: Symmetrical Anesthesia Assess/Plan ASA Score: 3 (Quadriplegic, HTN, Chol, PE/DVT, Anxiety/Depression) Modified Ringle Scale for Level of Consciousness: Cooperative, oriented, and tranquil Anesthetic Plan: MAC Monitoring Plan: Standard Monitors Recovery Plan: PACU Anes Supervising Prov Stmt: Pt seen/evaluated, R&B discussed, questions answered and consent obtained. Stephanie Devine MD
[2016-06-04] MEDS: *HR* Heparin 5,000 UNIT/ML VIAL SQ SCH ×4 (00:27→23:14)
[2016-06-04] MEDS: Ampicillin/Sulbactam 3,000 MG in 0.9 % Sodium Chloride Mini Bag 100 ML IVPB SCH ×4 (01:57→23:14)
[2016-06-04 04:23] LABS: Basophils % 0.2 %; Eosinophils # 0.2 K/mcL (0.0-0.6); Eosinophils % 1.7 %; Hematocrit 29.3 % (37.5-50.1); Hemoglobin 9.2 g/dL (12.9-16.9); Immature Granulocytes % 1.1 % (0-4); Lymphocytes # 1.2 K/mcL (0.6-4.6); Mean Corpuscular HGB Conc 31.4 g/dL (31.6-35.5); Mean Corpuscular Hemoglobin 25.6 pg (28.0-33.3); Mean Corpuscular Volume 81.6 fL (83.0-100.0); Monocytes # 0.7 K/mcL (0.0-1.3); Monocytes % 7.4 %; Platelet Count 325 K/mcL (140-400); Red Blood Count 3.59 M/mcL (4.19-5.50); Segmented Neutrophils % 76.6 %
[2016-06-04 04:39] LABS: BUN/Creatinine Ratio 30 (6-26); Blood Urea Nitrogen 14 mg/dL (8-26); Carbon Dioxide 28 mEq/L (19-29); Chloride 102 mEq/L (98-109); Glucose 112 mg/dL (70-99); Potassium 3.1 mEq/L (3.5-4.5); Sodium 138 mEq/L (136-145); eGFR For African Americans > 60 (> 60); eGFR For Non-African Americans > 60 (> 60)
[2016-06-04 04:40] LABS: Calcium 8.6 mg/dL (8.6-10.8); Osmolality,Calculated 287 (280-300)
[2016-06-04 04:53] LABS: Platelet Estimate Normal (Normal); Reactive Lymphocytes Present (Not Present)
[2016-06-04] MEDS ORDERED: *HR* Phenylephrine 10 MG/ML VIAL ONE (07:25)
[2016-06-04] MEDS ORDERED: Lidocaine -MPF 2% 2 ML VIAL ONE (07:25)
[2016-06-04] MEDS ORDERED: CefOXitin 1,000 MG VIAL ONE (08:00)
[2016-06-04] MEDS ORDERED: *HR* Propofol 200 MG/20 ML VIAL IVP ONE (08:17)
[2016-06-04] MEDS ORDERED: *HR* FentaNYL (PF) 100 MCG/2 ML VIAL ONE (08:17)
[2016-06-04] MEDS ORDERED: *HR* Midazolam HCl 2 MG/2 ML VIAL ONE (08:17)
[2016-06-04] MEDS: *HR* OxyCODONE Immed Rel 5 MG TABLET PO PRN (09:51)
[2016-06-04] MEDS: Furosemide 20 MG TABLET PO SCH (09:52)
[2016-06-04] MEDS: Baclofen 10 MG TABLET PO SCH ×2 (09:52→23:13)
[2016-06-04] MEDS: Lactobacillus 1 EACH CAP.SPRINK PO SCH ×2 (09:52→23:13)
[2016-06-04] MEDS: GuaiFENesin Liq 200 MG/10 ML UDC PO SCH ×3 (09:54→23:15)
--- NOTE | 2016-06-04 11:15 | Operative Note ---
Date of procedure: 06/04/16 Pre-op diagnosis: infected necrotic stage 4 sacral wound Post-op diagnosis: same Procedure: Debridement infected necrotic stage 4 sacral wound Complications: none immediate Anesthesia: MAC Surgeon: Katelynn Mayorga Entertainment Director Other: Olga Flor Estimated blood loss (cc): 5 Specimen: coccyx (bone) Condition: stable Disposition: PACU Procedure in Detail: Patient was brought into the operating on his bed. Sign in was performed and everyone was in agreement. Patient was placedin the right lateral decubitus position with pressure points padded by pillows. Anesthesia performed MAC anesthesia. The sacrum, lower back and bilateral buttocks were prepped and draped in the usual sterile fashion. Time out was performed and everyone was in agreement. Using tenotomy scissors, pick-ups, and a 15# blade the infected and necrotic tissue and slough in his stage 4 sacral wound was debrided sharply. The wound remained 14 cm L x 13.3 cm W x 4 cm D. The coccyx bone appeared to be loose from its normal position and a small piece of coccyx was removed sharply with scissors and sent to pathology for culture. The wound was irrigated with Dakins 0.25% and all bleeding was stopped with pressure. The wound was packed with 0.25% Dakins moistened kerlix, covered with ABD pads and secured with medipore tape. The patient tolerated the procedure well. All lap and instrument counts were correct at the end of the case. He was taken to pacu in stable condition.
--- NOTE | 2016-06-04 12:32 | Internal Med Progress Note ---
Date of Encounter: 06/04/16 Time of Encounter: 12:30 - Assessment and plan (1) Cellulitis Current Visit: Yes Status: Acute Assessment and plan: Cellulitis 2/2 stage 4 sacral decubitis ulcer. Afebrile, vitals WNL. Erythematous, tender. Topical Gentamycin and IV unasyn IVq6h Wound culture pending Leukocytosis improving....9.1 today. Afebrile. No tachycardia or tachypnea Pain control wound care Surgery following Went to OR today for debridement. Wound measured 14cm x 13cm x4cm. Necrotic. Coccyx bone displacement noted during debridement. Concern for osteomyelitis. MRI lumbosacral pending monitor cbc Qualifiers: Site of cellulitis: other site Qualified Code(s): L03.818 - Cellulitis of other sites (2) Pressure ulcer of sacral region, stage 4 Current Visit: No Status: Acute Assessment and plan: see above (3) Anemia Current Visit: No Status: Chronic Assessment and plan: Appears to have new normocytic anemia. Hgb up to 9.2 from 8.3 today Iron studies reveal low iron, low transferrin, and low TIBC D/t current infection will not replete iron may need blood tx if Hgb <7 continue to monitor CBC Qualifiers: Anemia type: unspecified type Qualified Code(s): D64.9 - Anemia, unspecified (4) Paraplegia Current Visit: No Status: Chronic Assessment and plan: Due to back injury secondary to fall in November 2015. Continue to hold Pradaxa. SQ heparin. (5) DVT prophylaxis Current Visit: Yes Status: Acute Assessment and plan: heparin subq - Subjective Interval history: Patient seen and examined. Went to OR today for debridement with Dr. Mayorga. Pt. states minor pain right now, well controlled with current pain regiment. Vital signs stable. Afebrile. - Constitutional Vitals: Temp Pulse Resp BP Pulse Ox 98.3 F 69 16 161/77 100 06/04/16 09:45 06/04/16 09:45 06/04/16 09:45 06/04/16 09:45 06/04/16 09:45 General appearance: Present: cooperative, A&O X 3, no acute distress, answers questions appropriately - Head Head exam: Present: atraumatic, normocephalic - Eye Eye exam: Present: PERRL, conjuntiva pink, sclera anicteric Pupils: Present: PERRL - Neck Neck exam general surgery: Present: supple, trachea midline. Absent: lymphadenopathy - Respiratory Respiratory exam: Present: decreased breath sounds, CTAB - Cardiovascular Cardiovascular exam: Present: RRR, +S1, +S2 - GI/Abdominal GI/Abdominal exam: Present: normal bowel sounds, soft, no peritoneal signs. Absent: distended, tenderness - Extremities Exam Extremities exam: Present: normal inspection (LE atrophy d/t paraplegia) - Neurological Exam Neurological exam: Present: CN II-XII intact, oriented X3. Absent: pronater drift, facial droop - Skin Skin exam: Absent: intact (stage 4 decubitis ulcer) Internal Medicine: Result - Labs CBC & Chem 7: 06/04/16 03:57 06/04/16 03:57 Labs: Short CBC 06/04/16 Range/Units 03:57 WBC 9.1 (4.3-11.1) K/mcL Hgb 9.2 L (12.9-16.9) g/dL Hct 29.3 L (37.5-50.1) % Plt Count 325 (140-400) K/mcL Neutrophils # 7.0 (1.6-8.9) K/mcL BMP 06/04/16 03:57 Sodium 138 Potassium 3.1 L Chloride 102 Carbon Dioxide 28 BUN 14 Creatinine 0.46 L Glucose 112 H Calcium 8.6 - VTE Documentation of Mechanical Device: Intermittent pneumatic compression device Consult Discharge Plan - Plan Referrals: Anna Dunham CNP [Primary Care Provider] -
[2016-06-04] MEDS: 0.9 % Sodium Chloride 1,000 ML IVC SCH (17:52)
[2016-06-04] MEDS: Acetaminophen 325 MG TABLET PO PRN (23:13)
[2016-06-05] MEDS: Ampicillin/Sulbactam 3,000 MG in 0.9 % Sodium Chloride Mini Bag 100 ML IVPB SCH ×4 (00:05→21:08)
[2016-06-05] MEDS: Acetaminophen 325 MG TABLET PO PRN ×2 (05:22→17:19)
[2016-06-05 06:19] LABS: Basophils % 0.3 %; Eosinophils # 0.2 K/mcL (0.0-0.6); Eosinophils % 3.4 %; Hematocrit 27.9 % (37.5-50.1); Hemoglobin 8.7 g/dL (12.9-16.9); Immature Granulocytes % 0.9 % (0-4); Lymphocytes % 17.6 %; Mean Corpuscular HGB Conc 31.2 g/dL (31.6-35.5); Mean Corpuscular Hemoglobin 26.1 pg (28.0-33.3); Mean Corpuscular Volume 83.8 fL (83.0-100.0); Mean Platelet Volume 9.3 fL (9.4-12.4); Monocytes % 9.9 %; Neutrophils # 4.4 K/mcL (1.6-8.9); Platelet Count 330 K/mcL (140-400); Red Blood Count 3.33 M/mcL (4.19-5.50); Segmented Neutrophils % 67.9 %
[2016-06-05 06:27] LABS: BUN/Creatinine Ratio 22 (6-26); Blood Urea Nitrogen 10 mg/dL (8-26); Calcium 8.3 mg/dL (8.6-10.8); Carbon Dioxide 24 mEq/L (19-29); Chloride 108 mEq/L (98-109); Glucose 95 mg/dL (70-99); Osmolality,Calculated 289 (280-300); Potassium 3.7 mEq/L (3.5-4.5); Sodium 140 mEq/L (136-145); eGFR For African Americans > 60 (> 60); eGFR For Non-African Americans > 60 (> 60)
[2016-06-05 06:48] LABS: Lymphocytes # 1.1 K/mcL (0.6-4.6); Monocytes # 0.6 K/mcL (0.0-1.3)
[2016-06-05 08:05] LABS: Platelet Estimate Normal (Normal)
[2016-06-05] MEDS: 0.9 % Sodium Chloride 1,000 ML IVC SCH ×2 (09:26→22:58)
[2016-06-05] MEDS: Lactobacillus 1 EACH CAP.SPRINK PO SCH ×2 (09:28→21:09)
[2016-06-05] MEDS: Baclofen 10 MG TABLET PO SCH ×2 (09:28→21:09)
[2016-06-05] MEDS: Furosemide 20 MG TABLET PO SCH (09:28)
[2016-06-05] MEDS: GuaiFENesin Liq 200 MG/10 ML UDC PO SCH ×3 (09:29→22:57)
[2016-06-05] MEDS: *HR* Heparin 5,000 UNIT/ML VIAL SQ SCH ×3 (09:29→23:20)
--- NOTE | 2016-06-05 10:43 | General Surgery Progress Note ---
<Olga Flor - Last Filed: 06/05/16 10:41> Date of Encounter: 06/05/16 Time of Encounter: 10:41 - Assessment and Plan (1) Pressure ulcer of sacral region, stage 4 Current Visit: Yes Status: Acute surgical debridement done in OR yesterday wound culture pending coccyx culture pending concern for osteomyelitis, MRI pelvis pending wound care pain control (2) Cellulitis Current Visit: Yes Status: Acute improving Topical Gentamycin and IV unasyn IVq6h Qualifiers: Site of cellulitis: other site Qualified Code(s): L03.818 - Cellulitis of other sites (3) Anemia Current Visit: Yes Status: Chronic Hg slightly decreased 8.3>9.2>8.7 Iron studies reveal low iron, low transferrin, and low TIBC continue to monitor and transfuse if needed Qualifiers: Anemia type: unspecified type Qualified Code(s): D64.9 - Anemia, unspecified (4) History of pulmonary embolism Current Visit: Yes Status: Acute continue to hold pradaxa for now (5) DVT prophylaxis Current Visit: Yes Status: Acute heparin subcutaneous (6) Paraplegia Current Visit: No Status: Chronic due to back injury s/p fall November 2015 Subjective Patient reports: no new complaints, afebrile Objective Vital Signs - Last 8 Hours Temp Pulse Resp BP Pulse Ox 06/05/16 09:06 97 06/05/16 07:01 97.3 F L 58 14 122/64 97 Intake and Output 06/04/16 06/05/16 06/05/16 23:59 07:59 15:59 Intake Total 100 / 100 1050 / 1050 560 / 560 Output Total 0 / 0 Balance 100 / 100 1050 / 1050 560 / 560 Intake: IV Fluids 100 / 100 1000 / 1000 200 / 200 0.9 % Sodium Chloride 1, 800 / 800 200 / 200 000 ML @ 75 mls/hr IVC . [id number] [facility] Rx#: [id number] Unasyn 3,000 MG In 0.9 % 100 / 100 200 / 200 Sodium Chloride (Mini-Bag +) 100 ML @ 200 mls/hr IVPB Q6H [facility] Rx#: [id number] Oral 50 / 50 360 / 360 Output: Catheter 0 / 0 Other: Meal Breakfast Percent of Meal Consumed 50% - General physical appearance well developed, well nourished, no distress - Eyes normal ocular movement - ENT normal mucosa, atraumatic, normocephalic - Neck Neck exam: trachea midline - Respiratory normal expansion, clear to auscultation - Cardiovascular Cardiovascular exam: Present: RRR - Integumentary other ([id number] cm stage 4 sacral decubitus ulcer) - Neurologic CN 2-12 grossly intact - Musculoskeletal other (quadraplegia) - Labs 06/05/16 04:57 06/05/16 04:57 Diabetes panel 06/05/16 Range/Units 04:57 Sodium 140 (136-145) mEq/L Potassium 3.7 (3.5-4.5) mEq/L Chloride 108 (98-109) mEq/L Carbon Dioxide 24 (19-29) mEq/L BUN 10 (8-26) mg/dL Creatinine 0.45 L (0.72-1.25) mg/dL Glucose 95 (70-99) mg/dL Calcium 8.3 L (8.6-10.8) mg/dL Calcium panel 06/05/16 Range/Units 04:57 Calcium 8.3 L (8.6-10.8) mg/dL Pituitary panel 06/05/16 Range/Units 04:57 Sodium 140 (136-145) mEq/L Potassium 3.7 (3.5-4.5) mEq/L Chloride 108 (98-109) mEq/L Carbon Dioxide 24 (19-29) mEq/L BUN 10 (8-26) mg/dL Creatinine 0.45 L (0.72-1.25) mg/dL Glucose 95 (70-99) mg/dL Calcium 8.3 L (8.6-10.8) mg/dL Adrenal panel 06/05/16 Range/Units 04:57 Sodium 140 (136-145) mEq/L Potassium 3.7 (3.5-4.5) mEq/L Chloride 108 (98-109) mEq/L Carbon Dioxide 24 (19-29) mEq/L BUN 10 (8-26) mg/dL Creatinine 0.45 L (0.72-1.25) mg/dL Glucose 95 (70-99) mg/dL Calcium 8.3 L (8.6-10.8) mg/dL - VTE Documentation of Mechanical Device: Intermittent pneumatic compression device Consult Discharge Plan - Plan Referrals: Anna Dunham, MORTGAGE LENDER [Primary Care Provider] - 06/14/16 9:30 am <Katelynn Mayorga - Last Filed: 06/06/16 13:14> - Assessment and Plan (1) History of pulmonary embolism Current Visit: Yes Status: Acute ok to restart pradaxa (2) Cellulitis Current Visit: Yes Status: Acute not using topical gentamicin continue IV abx for cellulitis wound care is BID dakins moistened kerlix Qualifiers: Site of cellulitis: other site Qualified Code(s): L03.818 - Cellulitis of other sites (3) Pressure ulcer of sacral region, stage 4 Current Visit: Yes Status: Acute MRI pelvis to evaluate concern for coccyx osteomyelitis continue Abx previous wound Cx have grown proteus and E faecalis continue BID dressing changes: dakins moistened kerlix, abds, tape Subjective Narrative: c/o headache and elevated blood pressure Objective Vital Signs - Last 8 Hours Temp Pulse Resp BP Pulse Ox 06/06/16 10:00 97.9 F 86 16 120/67 98 06/06/16 06:18 97.5 F L 87 16 143/79 98 Intake and Output 06/05/16 06/06/16 06/06/16 23:59 07:59 15:59 Intake Total 1100 / 1100 1081 / 1081 320 / 320 Output Total 500 / 500 700 / 700 Balance 600 / 600 381 / 381 320 / 320 Intake: IV Fluids 1100 / 1100 1081 / 1081 0.9 % Sodium Chloride 1, 1000 / 1000 881 / 881 000 ML @ 75 mls/hr IVC . [id number] [facility] Rx#: [id number] Unasyn 3,000 MG In 0.9 % 100 / 100 200 / 200 Sodium Chloride (Mini-Bag +) 100 ML @ 200 mls/hr IVPB Q6H [facility] Rx#: [id number] Oral 320 / 320 Output: Catheter 500 / 500 700 / 700 Other: Meal Breakfast Percent of Meal Consumed 75% - General physical appearance well developed, well nourished, moderate distress - Eyes PERRL, normal ocular movement - ENT normal mucosa, atraumatic, normocephalic - Neck Neck exam: trachea midline - Respiratory normal expansion, clear to auscultation - Neurologic CN 2-12 grossly intact - Musculoskeletal other - Psychiatric oriented to time, oriented to person, speech is normal, memory intact - Labs 06/06/16 05:13 06/06/16 05:13 Diabetes panel 06/06/16 Range/Units 05:13 Sodium 138 (136-145) mEq/L Potassium 3.5 (3.5-4.5) mEq/L Chloride 106 (98-109) mEq/L Carbon Dioxide 27 (19-29) mEq/L BUN 7 L (8-26) mg/dL Creatinine 0.44 L (0.72-1.25) mg/dL Glucose 93 (70-99) mg/dL Calcium 8.2 L (8.6-10.8) mg/dL Calcium panel 06/06/16 Range/Units 05:13 Calcium 8.2 L (8.6-10.8) mg/dL Pituitary panel 06/06/16 Range/Units 05:13 Sodium 138 (136-145) mEq/L Potassium 3.5 (3.5-4.5) mEq/L Chloride 106 (98-109) mEq/L Carbon Dioxide 27 (19-29) mEq/L BUN 7 L (8-26) mg/dL Creatinine 0.44 L (0.72-1.25) mg/dL Glucose 93 (70-99) mg/dL Calcium 8.2 L (8.6-10.8) mg/dL Adrenal panel 06/06/16 Range/Units 05:13 Sodium 138 (136-145) mEq/L Potassium 3.5 (3.5-4.5) mEq/L Chloride 106 (98-109) mEq/L Carbon Dioxide 27 (19-29) mEq/L BUN 7 L (8-26) mg/dL Creatinine 0.44 L (0.72-1.25) mg/dL Glucose 93 (70-99) mg/dL Calcium 8.2 L (8.6-10.8) mg/dL - Attending Attestation I examined this patient and my medical decision-making was reviewed with the STEM FRAZER/PA/Advanced Practice Nurse/Resident Physician. I agree with the documented findings, disposition and treatment plan as described except to the extent set forth below.
--- NOTE | 2016-06-05 12:50 | Internal Med Progress Note ---
<NiloLuther Gresham - Last Filed: 06/05/16 16:20> Date of Encounter: 06/05/16 Time of Encounter: 14:16 - Assessment and plan (1) Cellulitis Current Visit: Yes Status: Acute Assessment and plan: Cellulitis 2/2 stage 4 sacral decubitis ulcer. Wound culture prelim : Gram negative rods, enterococcus faecalis (sensitive to Ampicillin) Afebrile, vitals WNL. Leukocytosis now resolved....6.5 today Unasyn q6h (Day 4) Pain control wound care Surgery following POD 1 for debridbement. Wound measured 14cm x 13cm x4cm. Coccyx bone displacement noted during debridement. Concern for osteomyelitis. MRI pending to R/O osteomyelitis. Will need PICC line if + for osteo. monitor cbc Qualifiers: Site of cellulitis: other site Qualified Code(s): L03.818 - Cellulitis of other sites (2) Pressure ulcer of sacral region, stage 4 Current Visit: Yes Status: Acute Assessment and plan: as above (3) Anemia Current Visit: Yes Status: Chronic Assessment and plan: Appears to have new normocytic anemia. Hgb up to 9.2 from 8.3 today Iron studies reveal low iron, low transferrin, and low TIBC 325 ferrous sulfate BID may need blood tx if Hgb <7 continue to monitor CBC Qualifiers: Anemia type: unspecified type Qualified Code(s): D64.9 - Anemia, unspecified (4) Paraplegia Current Visit: No Status: Chronic Assessment and plan: Due to back injury secondary to fall in November 2015. Continue to hold Pradaxa. SQ heparin. (5) DVT prophylaxis Current Visit: Yes Status: Acute Assessment and plan: heparin subq - Subjective Interval history: Patient seen and examined. Went to OR yesterday for debridement with Dr. Mayorga. Pt. states minor pain right now, well controlled with current pain regiment. Vital signs stable. Afebrile. MRI to r/o osteomyelitis pending. - Constitutional Vitals: Temp Pulse Resp BP Pulse Ox 97.9 F 69 14 155/81 98 06/05/16 12:15 06/05/16 12:15 06/05/16 12:15 06/05/16 12:15 06/05/16 12:15 General appearance: Present: cooperative, mild distress, A&O X 3, answers questions appropriately - Head Head exam: Present: atraumatic, normocephalic - Eye Eye exam: Present: PERRL, conjuntiva pink, sclera anicteric Pupils: Present: PERRL - Neck Neck exam general surgery: Present: supple, trachea midline. Absent: lymphadenopathy - Respiratory Respiratory exam: Present: CTAB. Absent: accessory muscle use, rales, rhonchi, wheezes - Cardiovascular Cardiovascular exam: Present: RRR, +S1, +S2 - GI/Abdominal GI/Abdominal exam: Present: normal bowel sounds, soft. Absent: distended - Extremities Exam Extremities exam: Absent: full ROM, normal inspection (atrophy, quadraplegic) - Neurological Exam Neurological exam: Present: alert. Absent: altered, no focal deficits ( quadraplegic), facial droop, speech deficit - Skin Skin exam: Present: diaphoretic (chronic autonomic dysregulation s/p spinal cord injury), erythema (stage 4 sacral ulcer), warm Internal Medicine: Result - Labs CBC & Chem 7: 06/05/16 04:57 06/05/16 04:57 Labs: Short CBC 06/05/16 Range/Units 04:57 WBC 6.5 (4.3-11.1) K/mcL Hgb 8.7 L (12.9-16.9) g/dL Hct 27.9 L (37.5-50.1) % Plt Count 330 (140-400) K/mcL Neutrophils # 4.4 (1.6-8.9) K/mcL BMP 06/05/16 04:57 Sodium 140 Potassium 3.7 Chloride 108 Carbon Dioxide 24 BUN 10 Creatinine 0.45 L Glucose 95 Calcium 8.3 L - Impressions Impressions Lumbar Spine MRI 06/04/16 12:22 IMPRESSION: Annular disc bulge and mild facet arthropathy at L5-S1 result in mild right foraminal stenosis. No evidence of significant focal disc protrusion or central canal stenosis. Transitional S1 vertebral body which is lumbarized. Mild diffuse low signal changes within the marrow elements likely representing a marrow infiltrative process such as anemia. No abnormal enhancement within the lumbar spine. No evidence of discitis/osteomyelitis. D/ / 06/04/2016 16:28:24 Aki Spaulding MD / earnold Interpreting Provider: Aki Spaulding MD - VTE Documentation of Mechanical Device: Intermittent pneumatic compression device Consult Discharge Plan - Plan Referrals: Anna Dunham RN FACULTY [Primary Care Provider] - 06/14/16 9:30 am <RenSeferino - Last Filed: 06/05/16 19:09> - Constitutional Vitals: Temp Pulse Resp BP Pulse Ox 97.6 F 61 16 180/74 97 06/05/16 17:55 06/05/16 17:55 06/05/16 18:27 06/05/16 18:27 06/05/16 18:27 Internal Medicine: Result - Labs CBC & Chem 7: 06/05/16 04:57 06/05/16 04:57 Labs: Short CBC 06/05/16 Range/Units 04:57 WBC 6.5 (4.3-11.1) K/mcL Hgb 8.7 L (12.9-16.9) g/dL Hct 27.9 L (37.5-50.1) % Plt Count 330 (140-400) K/mcL Neutrophils # 4.4 (1.6-8.9) K/mcL BMP 06/05/16 04:57 Sodium 140 Potassium 3.7 Chloride 108 Carbon Dioxide 24 BUN 10 Creatinine 0.45 L Glucose 95 Calcium 8.3 L - Attending Attestation I examined this patient and my medical decision-making was reviewed with the Resident Physician. I agree with the documented findings, disposition and treatment plan as described
[2016-06-05] MEDS: Multivit/Ca/Min/Fe/FA 1 TAB TABLET PO SCH (15:03)
[2016-06-05] MEDS: *HR* OxyCODONE Immed Rel 5 MG TABLET PO PRN ×2 (17:19→23:20)
--- NOTE | 2016-06-05 17:34 | Electrocardiograph Report ---
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
[2016-06-05] MEDS: Patient Taking Own Medication 1 EACH RC SCH (18:43)
[2016-06-05] MEDS ORDERED: *HR* HYDROmorphone (PF) 1 MG/ML SYRINGE IVP ONE (20:21)
[2016-06-05] MEDS: Ascorbic Acid 500 MG TABLET PO SCH (21:09)
[2016-06-05] MEDS ORDERED: cloNIDine HCl 0.1 MG TABLET PO ONE (22:28)
[2016-06-06] MEDS: *HR* Morphine 2 MG/ML SYRINGE IVP PRN ×3 (01:39→16:02)
[2016-06-06] MEDS: Ampicillin/Sulbactam 3,000 MG in 0.9 % Sodium Chloride Mini Bag 100 ML IVPB SCH ×4 (01:39→20:11)
[2016-06-06] MEDS: *HR* OxyCODONE Immed Rel 5 MG TABLET PO PRN (04:36)
[2016-06-06] MEDS: Acetaminophen 325 MG TABLET PO PRN ×2 (06:11→16:40)
[2016-06-06 06:15] LABS: Basophils % 0.4 %; Eosinophils # 0.3 K/mcL (0.0-0.6); Eosinophils % 3.8 %; Hematocrit 29.6 % (37.5-50.1); Immature Granulocytes % 2.5 % (0-4); Lymphocytes # 1.3 K/mcL (0.6-4.6); Lymphocytes % 18.9 %; Mean Corpuscular HGB Conc 30.4 g/dL (31.6-35.5); Mean Corpuscular Hemoglobin 25.2 pg (28.0-33.3); Mean Corpuscular Volume 82.9 fL (83.0-100.0); Mean Platelet Volume 9.1 fL (9.4-12.4); Monocytes # 0.7 K/mcL (0.0-1.3); Neutrophils # 4.6 K/mcL (1.6-8.9); Platelet Count 371 K/mcL (140-400); Red Blood Count 3.57 M/mcL (4.19-5.50); Segmented Neutrophils % 64.4 %
[2016-06-06 06:28] LABS: BUN/Creatinine Ratio 16 (6-26); Blood Urea Nitrogen 7 mg/dL (8-26); C-Reactive Protein 28 mg/L (Less than 5); Calcium 8.2 mg/dL (8.6-10.8); Carbon Dioxide 27 mEq/L (19-29); Chloride 106 mEq/L (98-109); Glucose 93 mg/dL (70-99); Osmolality,Calculated 284 (280-300); Potassium 3.5 mEq/L (3.5-4.5); Sodium 138 mEq/L (136-145); eGFR For African Americans > 60 (> 60); eGFR For Non-African Americans > 60 (> 60)
[2016-06-06 06:33] LABS: Platelet Estimate Normal (Normal)
[2016-06-06] MEDS ORDERED: *HR* LORazepam 2 MG/ML VIAL IVP ONE ×2 (07:56→08:02)
[2016-06-06] MEDS ORDERED: *HR* Morphine 2 MG/ML SYRINGE IVP ONE (07:59)
--- NOTE | 2016-06-06 08:48 | General Surgery Progress Note ---
Addendum entered and electronically signed by Olga Flor DO 14:01: Do not hold pradaxa. Original Note: <Olga Flor - Last Filed: 06/06/16 08:39> Date of Encounter: 06/06/16 Time of Encounter: 08:39 - Assessment and Plan (1) Pressure ulcer of sacral region, stage 4 Current Visit: Yes Status: Acute surgical debridement done in OR 06/04/2016 wound culture positive for proteus vulgaris and enterococcus faecalis -enterococcus sensitive to ampicillin, streptomycin, and vancomycin -proteus sensitive to many abx including Unasyn coccyx culture preliminary result positive for gram positive cocci and gram negative tran concern for osteomyelitis, MRI pelvis pending - aborted today due to patient having a severe headache, scheduled for tomorrow AM wound care antibiotics - Unasyn pain control (2) Cellulitis Current Visit: Yes Status: Acute improving IV Unasyn q6h Qualifiers: Site of cellulitis: other site Qualified Code(s): L03.818 - Cellulitis of other sites (3) Anemia Current Visit: Yes Status: Chronic Hg continues to decrease 9.2>8.7>7.1 Iron studies reveal low iron, low transferrin, and low TIBC continue to monitor and transfuse if needed Qualifiers: Anemia type: unspecified type Qualified Code(s): D64.9 - Anemia, unspecified (4) History of pulmonary embolism Current Visit: Yes Status: Acute continue to hold pradaxa for now (5) DVT prophylaxis Current Visit: Yes Status: Acute heparin subcutaneous (6) Paraplegia Current Visit: No Status: Chronic due to back injury s/p fall November 2015 Subjective Patient reports: no new complaints, afebrile Objective Vital Signs - Last 8 Hours Temp Pulse Resp BP Pulse Ox 06/06/16 06:18 97.5 F L 87 16 143/79 98 06/06/16 04:29 97.5 F L 80 12 170/81 98 06/06/16 00:46 97.8 F 79 12 147/75 97 Intake and Output 06/05/16 06/06/16 06/06/16 23:59 07:59 15:59 Intake Total 1100 / 1100 1081 / 1081 Output Total 500 / 500 100 / 100 Balance 600 / 600 981 / 981 Intake: IV Fluids 1100 / 1100 1081 / 1081 0.9 % Sodium Chloride 1, 1000 / 1000 881 / 881 000 ML @ 75 mls/hr IVC . [id number] [facility] Rx#: [id number] Unasyn 3,000 MG In 0.9 % 100 / 100 200 / 200 Sodium Chloride (Mini-Bag +) 100 ML @ 200 mls/hr IVPB Q6H [facility] Rx#: [id number] Output: Catheter 500 / 500 100 / 100 - General physical appearance well developed, well nourished, no distress - Eyes normal ocular movement - ENT normal mucosa, atraumatic, normocephalic - Neck Neck exam: trachea midline - Respiratory normal respiratory effort, clear to auscultation - Cardiovascular Cardiovascular exam: Present: RRR - Abdomen Abdomen: Present: bowel sounds present, soft - Integumentary other ([id number] cm stage 4 sacral decubitus ulcer) - Neurologic CN 2-12 grossly intact - Musculoskeletal other (quadraplegia) - Labs 06/06/16 05:13 06/06/16 05:13 Diabetes panel 06/06/16 Range/Units 05:13 Sodium 138 (136-145) mEq/L Potassium 3.5 (3.5-4.5) mEq/L Chloride 106 (98-109) mEq/L Carbon Dioxide 27 (19-29) mEq/L BUN 7 L (8-26) mg/dL Creatinine 0.44 L (0.72-1.25) mg/dL Glucose 93 (70-99) mg/dL Calcium 8.2 L (8.6-10.8) mg/dL Calcium panel 06/06/16 Range/Units 05:13 Calcium 8.2 L (8.6-10.8) mg/dL Pituitary panel 06/06/16 Range/Units 05:13 Sodium 138 (136-145) mEq/L Potassium 3.5 (3.5-4.5) mEq/L Chloride 106 (98-109) mEq/L Carbon Dioxide 27 (19-29) mEq/L BUN 7 L (8-26) mg/dL Creatinine 0.44 L (0.72-1.25) mg/dL Glucose 93 (70-99) mg/dL Calcium 8.2 L (8.6-10.8) mg/dL Adrenal panel 06/06/16 Range/Units 05:13 Sodium 138 (136-145) mEq/L Potassium 3.5 (3.5-4.5) mEq/L Chloride 106 (98-109) mEq/L Carbon Dioxide 27 (19-29) mEq/L BUN 7 L (8-26) mg/dL Creatinine 0.44 L (0.72-1.25) mg/dL Glucose 93 (70-99) mg/dL Calcium 8.2 L (8.6-10.8) mg/dL - VTE Documentation of Mechanical Device: Intermittent pneumatic compression device Consult Discharge Plan - Plan Referrals: Anna Dunham, FELLING MACHINE OPERATOR [Primary Care Provider] - 06/14/16 9:30 am <Sindhu Faust - Last Filed: 06/06/16 12:29> - Assessment and Plan (1) Osteomyelitis of coccyx Current Visit: Yes Status: Acute MRI confirmed osteomyelitis of coccyx Await bone culture results- will determine antibiotic choice PICC line placement today for intermediate antibiotics- team notified Refer to ID at [facility] on site services specialist notified of discharge planning- IV antibiotics, wound care, PICC line care, home health ([facility]) Objective Vital Signs - Last 8 Hours Temp Pulse Resp BP Pulse Ox 06/06/16 10:00 97.9 F 86 16 120/67 98 06/06/16 06:18 97.5 F L 87 16 143/79 98 06/06/16 04:29 97.5 F L 80 12 170/81 98 Intake and Output 06/05/16 06/06/16 06/06/16 23:59 07:59 15:59 Intake Total 1100 / 1100 1081 / 1081 320 / 320 Output Total 500 / 500 700 / 700 Balance 600 / 600 381 / 381 320 / 320 Intake: IV Fluids 1100 / 1100 1081 / 1081 0.9 % Sodium Chloride 1, 1000 / 1000 881 / 881 000 ML @ 75 mls/hr IVC . [id number] [facility] Rx#: [id number] Unasyn 3,000 MG In 0.9 % 100 / 100 200 / 200 Sodium Chloride (Mini-Bag +) 100 ML @ 200 mls/hr IVPB Q6H [facility] Rx#: [id number] Oral 320 / 320 Output: Catheter 500 / 500 700 / 700 Other: Meal Breakfast Percent of Meal Consumed 75% - Labs 06/06/16 05:13 06/06/16 05:13 Diabetes panel 06/06/16 Range/Units 05:13 Sodium 138 (136-145) mEq/L Potassium 3.5 (3.5-4.5) mEq/L Chloride 106 (98-109) mEq/L Carbon Dioxide 27 (19-29) mEq/L BUN 7 L (8-26) mg/dL Creatinine 0.44 L (0.72-1.25) mg/dL Glucose 93 (70-99) mg/dL Calcium 8.2 L (8.6-10.8) mg/dL Calcium panel 06/06/16 Range/Units 05:13 Calcium 8.2 L (8.6-10.8) mg/dL Pituitary panel 06/06/16 Range/Units 05:13 Sodium 138 (136-145) mEq/L Potassium 3.5 (3.5-4.5) mEq/L Chloride 106 (98-109) mEq/L Carbon Dioxide 27 (19-29) mEq/L BUN 7 L (8-26) mg/dL Creatinine 0.44 L (0.72-1.25) mg/dL Glucose 93 (70-99) mg/dL Calcium 8.2 L (8.6-10.8) mg/dL Adrenal panel 06/06/16 Range/Units 05:13 Sodium 138 (136-145) mEq/L Potassium 3.5 (3.5-4.5) mEq/L Chloride 106 (98-109) mEq/L Carbon Dioxide 27 (19-29) mEq/L BUN 7 L (8-26) mg/dL Creatinine 0.44 L (0.72-1.25) mg/dL Glucose 93 (70-99) mg/dL Calcium 8.2 L (8.6-10.8) mg/dL
[2016-06-06] MEDS: Patient Taking Own Medication 1 EACH RC SCH (10:00)
[2016-06-06] MEDS: Ascorbic Acid 500 MG TABLET PO SCH ×2 (10:10→20:12)
[2016-06-06] MEDS: Furosemide 20 MG TABLET PO SCH (10:10)
[2016-06-06] MEDS: Multivit/Ca/Min/Fe/FA 1 TAB TABLET PO SCH (10:10)
[2016-06-06] MEDS: Baclofen 10 MG TABLET PO SCH ×2 (10:10→20:12)
[2016-06-06] MEDS: Lactobacillus 1 EACH CAP.SPRINK PO SCH ×2 (10:10→20:12)
[2016-06-06] MEDS: GuaiFENesin Liq 200 MG/10 ML UDC PO SCH ×3 (10:11→20:13)
[2016-06-06] MEDS: *HR* Heparin 5,000 UNIT/ML VIAL SQ SCH (10:11)
[2016-06-06] MEDS ORDERED: Lidocaine -MPF 1% 5 ML AMPUL INFILT ONE (15:33)
[2016-06-06] MEDS: *HR* Dabigatran 150 MG CAPSULE PO SCH ×2 (16:02→20:28)
[2016-06-06] MEDS: Gabapentin 300 MG CAPSULE PO SCH ×2 (16:02→20:12)
--- NOTE | 2016-06-06 18:14 | Internal Med Progress Note ---
Date of Encounter: 06/06/16 Time of Encounter: 18:12 - Assessment and plan (1) Cellulitis Current Visit: Yes Status: Acute Assessment and plan: Cellulitis 2/2 stage 4 sacral decubitis ulcer. Wound culture prelim : proteus , enterococcus faecalis (sensitive to Ampicillin) Afebrile, vitals WNL. Leukocytosis now resolved Unasyn q6h (Day 5) Pain control wound care Surgery following POD 2 for debridbement. Wound measured 14cm x 13cm x4cm. Coccyx bone displacement noted during debridement. Concern for osteomyelitis. MRI pelvis shows osteomyelitis of the coccyx. awaiting finalized bone biopsy culture which is more sensitive growing gram negative rods and gram positive cocci which may be similar to the wound cx. will continue on IV unsayn for now until final cx sensitivity. will need 4-6 weeks of antibiotics given acute osteomyelitis. Qualifiers: Site of cellulitis: other site Qualified Code(s): L03.818 - Cellulitis of other sites (2) Pressure ulcer of sacral region, stage 4 Current Visit: Yes Status: Acute Assessment and plan: as above (3) Anemia Current Visit: Yes Status: Chronic Assessment and plan: Appears to have new normocytic anemia. Hgb up to 9.2 from 8.3 today Iron studies reveal low iron, low transferrin, and low TIBC 325 ferrous sulfate BID may need blood tx if Hgb <7 continue to monitor CBC Qualifiers: Anemia type: unspecified type Qualified Code(s): D64.9 - Anemia, unspecified (4) Paraplegia Current Visit: No Status: Chronic Assessment and plan: Due to back injury secondary to fall in November 2015. Continue to hold Pradaxa. SQ heparin. (5) Hypertension Current Visit: Yes Status: Acute Assessment and plan: BP has been on the higher side since yesterday.have increased lisinopril to 10 mg dialy. hydralazine prn for HTN>180 systolic. if still high, will add norvasc. Qualifiers: Hypertension type: essential hypertension Qualified Code(s): I10 - Essential (primary) hypertension - Time Spent With Patient 25 - 35 minutes - Subjective Interval history: seen at the bedside, c/o mild pain at the eyes, CT head was done that was negative for any acute intracranial pathology. anxious and worried that he has to get the repeat MRI today , however agreeable with premedication. denies n/v. - Constitutional Vitals: Temp Pulse Resp BP Pulse Ox 97.5 F L 65 16 163/74 96 06/06/16 15:00 06/06/16 15:00 06/06/16 15:00 06/06/16 15:00 06/06/16 15:00 General appearance: Present: cooperative, A&O X 3, answers questions appropriately Exam: General physical appearance well developed, well nourished, no distress - Eyes normal ocular movement - ENT normal mucosa, atraumatic, normocephalic - Neck Neck exam: trachea midline - Respiratory normal respiratory effort, clear to auscultation - Cardiovascular Cardiovascular exam: Present: RRR - Abdomen Abdomen: Present: bowel sounds present, soft - Integumentary other (35v27h8 cm stage 4 sacral decubitus ulcer) - Neurologic CN 2-12 grossly intact - Musculoskeletal other (quadraplegia) Internal Medicine: Result - Labs CBC & Chem 7: 06/06/16 05:13 06/06/16 05:13 Labs: Short CBC 06/06/16 Range/Units 05:13 WBC 7.1 (4.3-11.1) K/mcL Hgb 9.0 L (12.9-16.9) g/dL Hct 29.6 L (37.5-50.1) % Plt Count 371 (140-400) K/mcL Neutrophils # 4.6 (1.6-8.9) K/mcL BMP 06/06/16 05:13 Sodium 138 Potassium 3.5 Chloride 106 Carbon Dioxide 27 BUN 7 L Creatinine 0.44 L Glucose 93 Calcium 8.2 L - Impressions Impressions Head CT 06/05/16 20:14 IMPRESSION: Hydrocephalus,, slightly increase increased from sinus CT 04/12/2013. Hazy hypodensity in the posterior right parietal lobe, compatible white matter disease of indeterminate etiology. Mild paranasal sinus disease mastoid disease and mastoid disease D/ / Dereje Almodovar MD / Dereje Almodovar MD Interpreting Provider: Dereje Almodovar MD Pelvis MRI 06/06/16 08:38 IMPRESSION: 1. Findings consistent with coccygeal osteomyelitis. 2. Associated with the large right decubitus ulcer there is right gluteus rich myositis and cellulitis. 3. No evidence of an abscess. D/ / 06/06/2016 09:58:30 Michael Crawley MD / Charissa Corcoran Interpreting Provider: Michael Crawley MD - VTE Documentation of Mechanical Device: Intermittent pneumatic compression device Consult Discharge Plan - Plan Referrals: Anna Dunham CNP [Primary Care Provider] - 06/14/16 9:30 am
[2016-06-07] MEDS: Ampicillin/Sulbactam 3,000 MG in 0.9 % Sodium Chloride Mini Bag 100 ML IVPB SCH ×4 (05:48→21:11)
[2016-06-07] MEDS: 0.9 % Sodium Chloride 1,000 ML IVC SCH ×2 (05:48→18:45)
[2016-06-07] MEDS: Acetaminophen 325 MG TABLET PO PRN (05:49)
[2016-06-07] MEDS: *HR* Morphine 2 MG/ML SYRINGE IVP PRN ×2 (06:01→17:31)
[2016-06-07 06:49] LABS: Basophils % 0.5 %; Eosinophils # 0.2 K/mcL (0.0-0.6); Eosinophils % 3.5 %; Hematocrit 27.8 % (37.5-50.1); Hemoglobin 8.5 g/dL (12.9-16.9); Immature Granulocytes % 3.8 % (0-4); Lymphocytes # 1.2 K/mcL (0.6-4.6); Lymphocytes % 20.3 %; Mean Corpuscular HGB Conc 30.6 g/dL (31.6-35.5); Mean Corpuscular Hemoglobin 25.4 pg (28.0-33.3); Mean Corpuscular Volume 83.2 fL (83.0-100.0); Mean Platelet Volume 8.9 fL (9.4-12.4); Monocytes # 0.5 K/mcL (0.0-1.3); Monocytes % 8.4 %; Neutrophils # 3.8 K/mcL (1.6-8.9); Platelet Count 309 K/mcL (140-400); Red Blood Count 3.34 M/mcL (4.19-5.50); Red Cell Distribution Width 15.3 % (11.5-14.5); Segmented Neutrophils % 63.5 %
[2016-06-07 06:58] LABS: BUN/Creatinine Ratio 14 (6-26); Blood Urea Nitrogen 7 mg/dL (8-26); Calcium 8.4 mg/dL (8.6-10.8); Carbon Dioxide 26 mEq/L (19-29); Chloride 109 mEq/L (98-109); Glucose 91 mg/dL (70-99); Osmolality,Calculated 288 (280-300); Potassium 4.5 mEq/L (3.5-4.5); Sodium 140 mEq/L (136-145); eGFR For African Americans > 60 (> 60); eGFR For Non-African Americans > 60 (> 60)
[2016-06-07] MEDS: Baclofen 10 MG TABLET PO SCH ×2 (10:47→21:10)
[2016-06-07] MEDS: Furosemide 20 MG TABLET PO SCH (10:47)
[2016-06-07] MEDS: Ascorbic Acid 500 MG TABLET PO SCH ×2 (10:47→21:10)
[2016-06-07] MEDS: Gabapentin 300 MG CAPSULE PO SCH ×3 (10:48→21:10)
[2016-06-07] MEDS: *HR* Dabigatran 150 MG CAPSULE PO SCH ×2 (10:48→21:10)
[2016-06-07] MEDS: Multivit/Ca/Min/Fe/FA 1 TAB TABLET PO SCH (10:48)
[2016-06-07] MEDS: Lactobacillus 1 EACH CAP.SPRINK PO SCH ×2 (10:49→21:10)
[2016-06-07] MEDS: Patient Taking Own Medication 1 EACH RC SCH (10:51)
[2016-06-07] MEDS: GuaiFENesin Liq 200 MG/10 ML UDC PO SCH ×3 (10:51→21:12)
--- NOTE | 2016-06-07 13:17 | General Surgery Progress Note ---
<CalvertSindhu Caprice - Last Filed: 06/07/16 13:21> Date of Encounter: 06/07/16 Time of Encounter: 11:30 - Assessment and Plan (1) Osteomyelitis of coccyx Current Visit: Yes Status: Acute MRI confirmed osteomyelitis of coccyx complete on 06/06/16 Cultures of bone- Proteus vulgaris and Enterococcus Faecalis PICC line placed 06/06/16 for correction antibiotics- team notified Refer to ID at [facility] as outpatient vp client services notified of discharge planning- IV antibiotics, wound care, PICC line care, home health ([facility]) (2) Pressure ulcer of sacral region, stage 4 Current Visit: Yes Status: Acute POD # 3 Debridement infected necrotic stage 4 sacral wound Continue daily dressing changes with Dakins solution as ordered F/U in wound care 1-[address] Mayorga for continued wound care assessment and treatment Refer to ID at [facility] as outpatient for management of osteomyelitis Continue MVI and Vit. C for assitance with wound healing Turn every 2 hours Pressure relief mattress (3) Paraplegia Current Visit: No Status: Chronic (4) History of pulmonary embolism Current Visit: Yes Status: Acute Continue pradaxa (5) Autonomic dysreflexia Current Visit: Yes Status: Acute Patients spoke with his spinal cord specialist and he suggests: Treating the patient for pain associated with his wound despite lack of sensation (Pain can trigger episodes) Clonidine 0.1mg as needed for hypertension Nitroglycerin paste as needed for hypertension Subjective Patient reports: feels better, afebrile Objective Vital Signs - Last 8 Hours Temp Pulse Resp BP Pulse Ox 06/07/16 11:00 98.0 F 84 16 147/75 97 06/07/16 07:00 98.7 F 75 16 160/73 93 L Intake and Output 06/06/16 06/07/16 06/07/16 23:59 07:59 15:59 Intake Total 540 / 540 119 / 119 900 / 900 Output Total 1650 / 1650 1250 / 1250 550 / 550 Balance -1110 / -1110 -1131 / -1131 350 / 350 Intake: IV Fluids 300 / 300 119 / 119 0.9 % Sodium Chloride 1, 119 / 119 000 ML @ 75 mls/hr IVC . [id number] [facility] Rx#: [id number] Unasyn 3,000 MG In 0.9 % 300 / 300 Sodium Chloride (Mini-Bag +) 100 ML @ 200 mls/hr IVPB Q6H [facility] Rx#: [id number] Oral 240 / 240 0 / 0 900 / 900 Output: Catheter 1650 / 1650 1250 / 1250 550 / 550 Other: Meal Dinner Breakfast Percent of Meal Consumed 75% 100% - General physical appearance well developed, well nourished, no distress, other (resting comfortably) - Eyes normal ocular movement - ENT normal mucosa, atraumatic, normocephalic - Neck Neck exam: trachea midline - Respiratory normal respiratory effort, clear to auscultation - Cardiovascular Cardiovascular exam: Present: RRR - Abdomen Abdomen: Present: bowel sounds present, soft, non tender - Integumentary other (Sacral wound with dressing intact) - Neurologic other (paraplegia) - Musculoskeletal other (paraplegia) - Psychiatric oriented to time, oriented to person, oriented to place, speech is normal, memory intact - Labs 06/07/16 06:29 06/07/16 06:29 Diabetes panel 06/07/16 Range/Units 06:29 Sodium 140 (136-145) mEq/L Potassium 4.5 D (3.5-4.5) mEq/L Chloride 109 (98-109) mEq/L Carbon Dioxide 26 (19-29) mEq/L BUN 7 L (8-26) mg/dL Creatinine 0.49 L (0.72-1.25) mg/dL Glucose 91 (70-99) mg/dL Calcium 8.4 L (8.6-10.8) mg/dL Calcium panel 06/07/16 Range/Units 06:29 Calcium 8.4 L (8.6-10.8) mg/dL Pituitary panel 06/07/16 Range/Units 06:29 Sodium 140 (136-145) mEq/L Potassium 4.5 D (3.5-4.5) mEq/L Chloride 109 (98-109) mEq/L Carbon Dioxide 26 (19-29) mEq/L BUN 7 L (8-26) mg/dL Creatinine 0.49 L (0.72-1.25) mg/dL Glucose 91 (70-99) mg/dL Calcium 8.4 L (8.6-10.8) mg/dL Adrenal panel 06/07/16 Range/Units 06:29 Sodium 140 (136-145) mEq/L Potassium 4.5 D (3.5-4.5) mEq/L Chloride 109 (98-109) mEq/L Carbon Dioxide 26 (19-29) mEq/L BUN 7 L (8-26) mg/dL Creatinine 0.49 L (0.72-1.25) mg/dL Glucose 91 (70-99) mg/dL Calcium 8.4 L (8.6-10.8) mg/dL - VTE Documentation of Mechanical Device: Intermittent pneumatic compression device Consult Discharge Plan - Plan Referrals: Anna Dunham CNP [Primary Care Provider] - 06/14/16 9:30 am Katelynn Mayorga MD [Partnered Physician] - 06/16/16 9:45 am (Wound care follow -up in the wound clinic with Dr. Mayorga) Prescriptions: Ampicillin/Sulbactam [Unasyn] 3,000 mg IVPB Q6HR 28 Days OxyCODONE/APAP 5/325 [Percocet 5/325 MG] 1 each PO Q6HR PRN #30 tablet PRN Reason: Pain Lisinopril [Zestril] 10 mg PO DAILY #30 tablet - Attending Attestation I examined this patient and my medical decision-making was reviewed with the SALES RESEARCH ANALYST/PA/Advanced Practice Nurse/Resident Physician. I agree with the documented findings, disposition and treatment plan as described except to the extent set forth below. <Katelynn Mayorga - Last Filed: 06/09/16 09:07> - Assessment and Plan (1) History of pulmonary embolism Current Visit: Yes Status: Acute (2) Cellulitis Current Visit: Yes Status: Acute Qualifiers: Site of cellulitis: other site Qualified Code(s): L03.818 - Cellulitis of other sites (3) Pressure ulcer of sacral region, stage 4 Current Visit: Yes Status: Acute Objective Vital Signs - Last 8 Hours Temp Pulse Resp BP Pulse Ox 06/09/16 06:37 98.2 F 82 15 91/54 97 06/09/16 03:50 97.5 F L 75 14 124/73 97 Intake and Output 06/08/16 06/09/16 06/09/16 23:59 07:59 15:59 Intake Total 200 / 200 1080 / 1080 Output Total 850 / 850 300 / 300 Balance -650 / -650 780 / 780 Intake: IV Fluids 200 / 200 1080 / 1080 0.9 % Sodium Chloride 1, 980 / 980 000 ML @ 75 mls/hr IVC . [id number] [facility] Rx#: [id number] Unasyn 3,000 MG In 0.9 % 200 / 200 100 / 100 Sodium Chloride (Mini-Bag +) 100 ML @ 200 mls/hr IVPB Q6H [facility] Rx#: [id number] Oral 0 / 0 0 / 0 Output: Catheter 850 / 850 300 / 300 Other: Stool Size Large Stool Consistency soft Stool Characteristics Normal for Patient Stool Color Brown # Bowel Movement Diapers 1 - Eyes PERRL, normal ocular movement - Labs 06/07/16 06:29 06/07/16 06:29
--- NOTE | 2016-06-07 15:01 | Discharge Summary ---
Date of Encounter: 06/07/16 Time of Encounter: 14:58 - Discharge Diagnosis (1) Cellulitis Priority: Primary Status: Acute Qualifiers: Site of cellulitis: other site Qualified Code(s): L03.818 - Cellulitis of other sites (2) Pressure ulcer of sacral region, stage 4 Priority: Primary Status: Acute (3) Anemia Priority: Secondary Status: Chronic Qualifiers: Anemia type: unspecified type Qualified Code(s): D64.9 - Anemia, unspecified (4) Paraplegia Priority: Secondary Status: Chronic (5) Hypertension Priority: Secondary Status: Acute Qualifiers: Hypertension type: essential hypertension Qualified Code(s): I10 - Essential (primary) hypertension - Discharge Medications Prescriptions: Ampicillin/Sulbactam [Unasyn] 3,000 mg IVPB Q6HR 28 Days OxyCODONE/APAP 5/325 [Percocet 5/325 MG] 1 each PO Q6HR PRN #30 tablet PRN Reason: Pain Lisinopril [Zestril] 10 mg PO DAILY #30 tablet Home Medications: Acetaminophen [Tylenol] 325 mg PO Q6HR PRN 05/16/16 [History] Aspirin [Lo-Dose Aspirin EC] 81 mg PO DAILY 05/16/16 [History] Atorvastatin [Lipitor] 20 mg PO DAILY 05/16/16 [History] Baclofen [Lioresal] 10 mg PO BID 05/16/16 [History] Calcium Polycarbophil [Fiber Laxative] 625 mg PO BID 05/16/16 [History] Carvedilol [Coreg] 25 mg PO BID 05/16/16 [History] Citalopram [CeleXA] 20 mg PO DAILY 05/16/16 [History] Cyclobenzaprine [Flexeril] 10 mg PO TID PRN 05/16/16 [History] Dabigatran [Pradaxa] 150 mg PO BID 05/16/16 [History] Furosemide [Lasix] 20 mg PO DAILY 05/16/16 [History] Gabapentin [Neurontin] 600 mg PO TID 05/16/16 [History] Guaifenesin [Mucinex] 400 mg PO TID 05/16/16 [History] Lactobacillus Acidophilus [Acidophilus Lactobacillus] 1 cap PO TID 05/16/16 [ History] Melatonin/Pyridoxine HCl (B6) [Melatonin 3 mg Tablet] 6 mg PO HS 05/16/16 [ History] OxyCODONE Immed Rel [Roxicodone 5 MG] 5 mg PO Q4HR PRN 05/16/16 [History] Collagenase Oint [Santyl] 1 appl TP DAILY #2 tube 05/17/16 [Rx] Gentamicin Oint [Garamycin] 1 appl TP DAILY #2 tube 05/17/16 [Rx] Ampicillin/Sulbactam [Unasyn] 3,000 mg IVPB Q6HR 28 Days 06/07/16 [Rx] Lisinopril [Zestril] 10 mg PO DAILY #30 tablet 06/07/16 [Rx] OxyCODONE/APAP 5/325 [Percocet 5/325 MG] 1 each PO Q6HR PRN #30 tablet 06/07/16 [Rx] Allergies/Adverse Reactions: Allergies Gadolinium-Containing Contrast Medi Allergy (Verified 06/06/16 14:42) Hives Procedures/tests Complete & Pending: Procedures Performed prior 72 hours Category Date Time Status CT head/brain wo con [CT] Stat Cat Scan 06/05/16 20:14 Completed MR pelvis wo con [MR] Stat MRI 06/06/16 08:38 Completed Date of admission: 06/02/16 19:42 Primary care physician: Anna Dunham, Consults: 06/04/16 09:47 Consult to Nutrition [CONS] Routine Comment: extra protein in diet Consulting Provider: NUTRITION Reason for Dietary Consult: Supplemental Nutrition Diet Education 06/04/16 11:55 Consult to Occupational Therapy [CONS] Routine Comment: Evaluate, develop and implement POC Consult to Physical Therapy [CONS] Routine Comment: Evaluate, develop and implement POC 06/06/16 11:24 Consult to Invasive Line Access Team [CONS] Routine Reason for Consult: [facility] IV antibiotics Line Type: PICC PICC line indications: longterm Med/Antibiotic Time Notified: 11:25 Call Completed: Yes 06/06/16 15:33 Consult to Invasive Line Access Team [CONS] Routine Reason for Consult: Picc Line Insertion Line Type: PICC 06/03/16 08:05 Consult to Surgery [CONS] Routine Consulting Provider: Katelynn Mayorga Reason for Consult: Sacral decubitus ulcer Call Completed: Yes Discharging clinician: Seferino Mcclure Anticipated date of discharge: 06/07/16 - Patient Status Disposition: Home Health Service Condition: Fair Functional capacity at discharge: bed bound Overall status at discharge: patient is back to baseline - Discharge Instructions Follow Up With: Anna Dunham CNP [Primary Care Provider] - 06/14/16 9:30 am Katelynn Mayorga MD [Partnered Physician] - 06/16/16 9:45 am (Wound care follow -up in the wound clinic with Dr. Mayorga) - Diet and Activity Activity: as per physical therapy Diet: advance to your usual diet Interval History: Mr. Orellana is a 65 year old male with PMH of HTN and quadriplegic secondary a fall in November 2015. Patient was sent by Dr. Mayorga from wound care clinic to ED. Per , the sacral decubitus ulcer has tremendous amount of drainage and erythema. The wound was debrided and packed and dressing was placed but she would like the patient admitted for IV antibiotics and she will reevaluate for possible need of debridement in OR. Due to his back injury, patient doesn't feel any pain from the sacral decubitus ulcer. Per patient's at bedside, Dr. Mayorga even mentioned that patient may not need anesthesia for surgical debridement. Patient denies fever, chills, nausea, vomiting, chest pain, shortness of breath, cough, abdominal pain, diarrhea. Patient does have chronic neck pain. Patient denies known cardiac problem. But patient's mentioned that patient developed PE during his stay at [facility] and leaded cardiac dysfunction requiring ECMO for several days. Hospital course: He was admitted for cellulitis and debridement of stage IV sacral wound. General surgery was consulted, he underwent debridement, the coccyx bone appear to be loose from its normal position and a small piece of coccyx was removed during debridement. He was started on IV Unasyn, his leukocytosis resolved, he remained afebrile and hemodynamically stable. ESR was noted to be high, given possible bone involvement, MRI of the pelvis was done which showed osteomyelitis of the coccy. Blood cultures from the wound as well as the bone culture during debridement both showed Proteus and enterococcus that was sensitive to Unasyn. He had episodes when he had severe pain which possibly elevated his blood pressure, he was given when necessary hydralazine and his lisinopril was increased to 10 mg from 5 mg daily. He did well with increased dose of lisinopril and his blood pressure has remained stable after that. The pain is well controlled, he will need prolonged antibiotics, we will discharge him on IV Unasyn for 4 weeks. Has no ID services available here, we will need to follow-up with ID at [facility] in 2 weeks for further continuation of antibiotics. Patient is being discharged today in stable condition. Time spent discussing smoking cessation with patient: more than 10 minutes - Time Spent with Patient Total time spent providing and/or coordinating discharge services: Greater than 30 minutes - Constitutional Vitals: Temp Pulse Resp BP Pulse Ox 98.0 F 84 16 147/75 97 06/07/16 11:00 06/07/16 11:00 06/07/16 11:00 06/07/16 11:00 06/07/16 11:00 General appearance: Present: cooperative, A&O X 3, answers questions appropriately Exam: General physical appearance well developed, well nourished, no distress - Eyes normal ocular movement - ENT normal mucosa, atraumatic, normocephalic - Neck Neck exam: trachea midline - Respiratory normal respiratory effort, clear to auscultation - Cardiovascular Cardiovascular exam: Present: RRR - Abdomen Abdomen: Present: bowel sounds present, soft - Integumentary other ([id number] cm stage 4 sacral decubitus ulcer) - Neurologic CN 2-12 grossly intact - VTE Documentation of Mechanical Device: Intermittent pneumatic compression device
--- NOTE | 2016-06-07 15:07 | Physician Discharge Referral ---
Home Health/Hosp Referral Info Transfer to: Home Health Attending Provider: caitlin gonzalez - Diagnosis (1) Cellulitis Status: Acute (2) Pressure ulcer of sacral region, stage 4 Status: Acute (3) Anemia Status: Chronic (4) Paraplegia Status: Chronic (5) Hypertension Status: Acute - Respiratory Orders Smoking Cessation: Smoking cessation has been advised. For more information, call the [facility] staff Tobacco Quit Line at 7-719-QCRB-NOW. - Diet/Nutrition Diet/Nutrition Orders: Regular - Activity Activity Orders: Bedrest - Services Needed Following services are medically necessary services: Nursing, Home Health Aide, Physical Therapy, Occupational Therapy, Home Infusion - Transfer Medications Prescriptions: Ampicillin/Sulbactam [Unasyn] 3,000 mg IVPB Q6HR 28 Days OxyCODONE/APAP 5/325 [Percocet 5/325 MG] 1 each PO Q6HR PRN #30 tablet PRN Reason: Pain Lisinopril [Zestril] 10 mg PO DAILY #30 tablet Home Medications: Acetaminophen [Tylenol] 325 mg PO Q6HR PRN 05/16/16 [History] Aspirin [Lo-Dose Aspirin EC] 81 mg PO DAILY 05/16/16 [History] Atorvastatin [Lipitor] 20 mg PO DAILY 05/16/16 [History] Baclofen [Lioresal] 10 mg PO BID 05/16/16 [History] Calcium Polycarbophil [Fiber Laxative] 625 mg PO BID 05/16/16 [History] Carvedilol [Coreg] 25 mg PO BID 05/16/16 [History] Citalopram [CeleXA] 20 mg PO DAILY 05/16/16 [History] Cyclobenzaprine [Flexeril] 10 mg PO TID PRN 05/16/16 [History] Dabigatran [Pradaxa] 150 mg PO BID 05/16/16 [History] Furosemide [Lasix] 20 mg PO DAILY 05/16/16 [History] Gabapentin [Neurontin] 600 mg PO TID 05/16/16 [History] Guaifenesin [Mucinex] 400 mg PO TID 05/16/16 [History] Lactobacillus Acidophilus [Acidophilus Lactobacillus] 1 cap PO TID 05/16/16 [ History] Melatonin/Pyridoxine HCl (B6) [Melatonin 3 mg Tablet] 6 mg PO HS 05/16/16 [ History] OxyCODONE Immed Rel [Roxicodone 5 MG] 5 mg PO Q4HR PRN 05/16/16 [History] Collagenase Oint [Santyl] 1 appl TP DAILY #2 tube 05/17/16 [Rx] Gentamicin Oint [Garamycin] 1 appl TP DAILY #2 tube 05/17/16 [Rx] Ampicillin/Sulbactam [Unasyn] 3,000 mg IVPB Q6HR 28 Days 06/07/16 [Rx] Lisinopril [Zestril] 10 mg PO DAILY #30 tablet 06/07/16 [Rx] OxyCODONE/APAP 5/325 [Percocet 5/325 MG] 1 each PO Q6HR PRN #30 tablet 06/07/16 [Rx] Allergies/Adverse Reactions: Allergies Gadolinium-Containing Contrast Medi Allergy (Verified 06/06/16 14:42) Hives Certification: Further, I certify that my clinical findings support that this patient is homebound (i.e. absences from home require considerable and taxing effort and are for medical reasons or oriental orthodox services or infrequently or short duration when for other reasons) because: Homebound Reason: Patient requires assistance of a person or device to safely leave home Attestation: My signature below is to certify that this patient is under my care and that I, or nurse practitioner, or a physician's parking assistant working with me, has a face-to -face encounter with this patient.
[2016-06-08] MEDS: 0.9 % Sodium Chloride 1,000 ML IVC SCH ×2 (02:56→23:58)
[2016-06-08] MEDS: Ampicillin/Sulbactam 3,000 MG in 0.9 % Sodium Chloride Mini Bag 100 ML IVPB SCH ×4 (02:57→20:24)
[2016-06-08] MEDS: Acetaminophen 325 MG TABLET PO PRN ×2 (05:58→14:41)
[2016-06-08] MEDS: Gabapentin 300 MG CAPSULE PO SCH ×3 (08:27→20:24)
[2016-06-08] MEDS: Multivit/Ca/Min/Fe/FA 1 TAB TABLET PO SCH (08:27)
[2016-06-08] MEDS: Ascorbic Acid 500 MG TABLET PO SCH ×2 (08:28→20:23)
[2016-06-08] MEDS: GuaiFENesin Liq 200 MG/10 ML UDC PO SCH ×3 (08:29→23:59)
[2016-06-08] MEDS: Baclofen 10 MG TABLET PO SCH ×2 (08:29→20:24)
[2016-06-08] MEDS: Furosemide 20 MG TABLET PO SCH (08:29)
[2016-06-08] MEDS: Lactobacillus 1 EACH CAP.SPRINK PO SCH ×2 (08:29→20:24)
[2016-06-08] MEDS: *HR* Dabigatran 150 MG CAPSULE PO SCH ×2 (08:38→20:24)
[2016-06-08] MEDS: Patient Taking Own Medication 1 EACH RC SCH ×3 (17:17→23:59)
[2016-06-08] MEDS: *HR* OxyCODONE Immed Rel 5 MG TABLET PO PRN (18:30)
--- NOTE | 2016-06-08 18:30 | Event Note ---
Date of Encounter: 06/08/16 Time of Encounter: 18:28 Patient was discharged on 06/07/2016 with IV antibiotics for acute osteomyelitis of the coccyx bone. He did not leave the hospital due to insurance issues and availability of home health for IV antibiotics at home. He will be discharged tomorrow morning after the home health [facility] for [facility] to receive IV [facility] at home.
[2016-06-09] MEDS: 0.9 % Sodium Chloride 1,000 ML IVC SCH ×2 (00:04→20:41)
[2016-06-09] MEDS: Ampicillin/Sulbactam 3,000 MG in 0.9 % Sodium Chloride Mini Bag 100 ML IVPB SCH ×3 (02:04→15:25)
[2016-06-09] MEDS: *HR* OxyCODONE Immed Rel 5 MG TABLET PO PRN (03:58)
[2016-06-09] MEDS: Furosemide 20 MG TABLET PO SCH (08:36)
[2016-06-09] MEDS: Ascorbic Acid 500 MG TABLET PO SCH ×2 (08:36→21:14)
[2016-06-09] MEDS: Multivit/Ca/Min/Fe/FA 1 TAB TABLET PO SCH (08:36)
[2016-06-09] MEDS: *HR* Dabigatran 150 MG CAPSULE PO SCH ×2 (08:36→21:14)
[2016-06-09] MEDS: Baclofen 10 MG TABLET PO SCH ×2 (08:36→21:14)
[2016-06-09] MEDS: Gabapentin 300 MG CAPSULE PO SCH ×3 (08:37→21:14)
[2016-06-09] MEDS: GuaiFENesin Liq 200 MG/10 ML UDC PO SCH ×3 (08:37→23:19)
[2016-06-09] MEDS: Lactobacillus 1 EACH CAP.SPRINK PO SCH ×2 (08:37→21:14)
[2016-06-09] MEDS: Acetaminophen 325 MG TABLET PO PRN ×2 (08:41→15:52)
[2016-06-09] MEDS: Patient Taking Own Medication 1 EACH RC SCH (08:54)
--- NOTE | 2016-06-09 15:20 | Discharge Summary ---
Date of Encounter: 06/09/16 Time of Encounter: 11:00 - Discharge Medications Prescriptions: OxyCODONE/APAP 5/325 [Percocet 5/325 MG] 1 each PO Q6HR PRN #30 tablet PRN Reason: Pain Bkmlhmfzhppw-Rudu-Aikyzocr,Iso [Zosyn 3.375 gm/50 ml Galaxy] 3.375 gm IV Q8HR # 82 froz.piggy Ascorbic Acid [Vitamin C] 500 mg PO BID #60 tablet Lisinopril [Zestril] 10 mg PO DAILY #30 tablet Multivit/Ca/Min/Fe/FA [Thera M Plus] 1 tab PO DAILY #30 tablet Home Medications: Acetaminophen [Tylenol] 325 mg PO Q6HR PRN 05/16/16 [History] Aspirin [Lo-Dose Aspirin EC] 81 mg PO DAILY 05/16/16 [History] Atorvastatin [Lipitor] 20 mg PO DAILY 05/16/16 [History] Baclofen [Lioresal] 10 mg PO BID 05/16/16 [History] Calcium Polycarbophil [Fiber Laxative] 625 mg PO BID 05/16/16 [History] Carvedilol [Coreg] 25 mg PO BID 05/16/16 [History] Citalopram [CeleXA] 20 mg PO DAILY 05/16/16 [History] Cyclobenzaprine [Flexeril] 10 mg PO TID PRN 05/16/16 [History] Dabigatran [Pradaxa] 150 mg PO BID 05/16/16 [History] Furosemide [Lasix] 20 mg PO DAILY 05/16/16 [History] Gabapentin [Neurontin] 600 mg PO TID 05/16/16 [History] Guaifenesin [Mucinex] 400 mg PO TID 05/16/16 [History] Lactobacillus Acidophilus [Acidophilus Lactobacillus] 1 cap PO TID 05/16/16 [ History] Melatonin/Pyridoxine HCl (B6) [Melatonin 3 mg Tablet] 6 mg PO HS 05/16/16 [ History] OxyCODONE Immed Rel [Roxicodone 5 MG] 5 mg PO Q4HR PRN 05/16/16 [History] Collagenase Oint [Santyl] 1 appl TP DAILY #2 tube 05/17/16 [Rx] Gentamicin Oint [Garamycin] 1 appl TP DAILY #2 tube 05/17/16 [Rx] Lisinopril [Zestril] 10 mg PO DAILY #30 tablet 06/07/16 [Rx] OxyCODONE/APAP 5/325 [Percocet 5/325 MG] 1 each PO Q6HR PRN #30 tablet 06/07/16 [Rx] Ascorbic Acid [Vitamin C] 500 mg PO BID #60 tablet 06/09/16 [Rx] Multivit/Ca/Min/Fe/FA [Thera M Plus] 1 tab PO DAILY #30 tablet 06/09/16 [Rx] Stnuerjyjfuj-Yowj-Lzczstyk,Iso [Zosyn 3.375 gm/50 ml Galaxy] 3.375 gm IV Q8HR # 82 froz.piggy 06/09/16 [Rx] Allergies/Adverse Reactions: Allergies Gadolinium-Containing Contrast Medi Allergy (Verified 06/06/16 14:42) Hives Date of admission: 06/02/16 19:42 Primary care physician: Anna Dunham, Consults: 06/04/16 09:47 Consult to Nutrition [CONS] Routine Comment: extra protein in diet Consulting Provider: NUTRITION Reason for Dietary Consult: Supplemental Nutrition Diet Education 06/04/16 11:55 Consult to Occupational Therapy [CONS] Routine Comment: Evaluate, develop and implement POC Consult to Physical Therapy [CONS] Routine Comment: Evaluate, develop and implement POC 06/06/16 11:24 Consult to Invasive Line Access Team [CONS] Routine Reason for Consult: Fdc IV antibiotics Line Type: PICC PICC line indications: correction Med/Antibiotic Time Notified: 11:25 Call Completed: Yes 06/06/16 15:33 Consult to Invasive Line Access Team [CONS] Routine Reason for Consult: Picc Line Insertion Line Type: PICC 06/03/16 08:05 Consult to Surgery [CONS] Routine Consulting Provider: Katelynn Mayorga Reason for Consult: Sacral decubitus ulcer Call Completed: Yes Discharging clinician: Kimberly Duque Anticipated date of discharge: 06/09/16 - Patient Status Disposition: Home Health Service Condition: Fair Overall status at discharge: patient is progressing back to baseline - Discharge Instructions Instructions: Oxycodone/Acetaminophen (By mouth), Osteomyelitis (DC), Osteomyelitis (GEN), Autonomic Dysreflexia (GEN) Follow Up With: Anna Dunham, [employer]ICIAN [Primary Care Provider] - 06/14/16 9:30 am Katelynn Mayorga MD [Partnered Physician] - 06/16/16 9:45 am (Wound care follow -up in the wound clinic with Dr. Mayorga) - Diet and Activity Activity: increase activity as tolerated Diet: advance to your usual diet (discharge home with home iV antibiotics) Interval History: Mr Orellana is a 65 y/o gentleman with PMH significant for HTn adn debility pt was admitted with large ulcer in sacral area results were positive for osteomyeliits wound cultures were positive for proteus and enterococo faecalis, pt was discharge on zosyn for 4 weeks condition and thte time fo discharge is stable Hospital course: Mr. Orellana is a 65 year old male - Time Spent with Patient Total time spent providing and/or coordinating discharge services: Less than 30 minutes - Constitutional Vitals: Temp Pulse Resp BP Pulse Ox 97.7 F 85 18 98/62 97 06/09/16 14:43 06/09/16 14:43 06/09/16 14:43 06/09/16 14:43 06/09/16 14:43 General appearance: Present: cooperative, A&O X 3, answers questions appropriately - Respiratory Respiratory exam: Present: CTAB - Cardiovascular Cardiovascular exam: Present: RRR, +S1, +S2. Absent: +S3 - GI/Abdominal GI/Abdominal exam: Present: normal bowel sounds, soft - Extremities Exam Extremities exam: Present: warm, radial pulses palpable and symetrical Additional comments: sacral decubitus wound with pacing in place - VTE Documentation of Mechanical Device: Intermittent pneumatic compression device
[2016-06-09] MEDS: Piperacillin/Tazobactam 3.375 GM in D5% in Water (Mini-Bag+) 100 ML IVPB SCH (21:14)
[2016-06-10] MEDS: *HR* OxyCODONE Immed Rel 5 MG TABLET PO PRN (00:39)
[2016-06-10] MEDS: Piperacillin/Tazobactam 3.375 GM in D5% in Water (Mini-Bag+) 100 ML IVPB SCH (05:32)
[2016-06-10 07:10] VITALS: BP 121/72
--- NOTE | 2016-06-10 09:07 | Discharge Summary ---
Date of Encounter: 06/10/16 Time of Encounter: 09:00 - Discharge Medications Prescriptions: OxyCODONE/APAP 5/325 [Percocet 5/325 MG] 1 each PO Q6HR PRN #30 tablet PRN Reason: Pain Cmtgwyihlonc-Ldoa-Jacbxsqt,Iso [Zosyn 3.375 gm/50 ml Galaxy] 3.375 gm IV Q8HR # 82 froz.piggy Ascorbic Acid [Vitamin C] 500 mg PO BID #60 tablet Lisinopril [Zestril] 10 mg PO DAILY #30 tablet Multivit/Ca/Min/Fe/FA [Thera M Plus] 1 tab PO DAILY #30 tablet Home Medications: Acetaminophen [Tylenol] 325 mg PO Q6HR PRN 05/16/16 [History] Aspirin [Lo-Dose Aspirin EC] 81 mg PO DAILY 05/16/16 [History] Atorvastatin [Lipitor] 20 mg PO DAILY 05/16/16 [History] Baclofen [Lioresal] 10 mg PO BID 05/16/16 [History] Calcium Polycarbophil [Fiber Laxative] 625 mg PO BID 05/16/16 [History] Carvedilol [Coreg] 25 mg PO BID 05/16/16 [History] Citalopram [CeleXA] 20 mg PO DAILY 05/16/16 [History] Cyclobenzaprine [Flexeril] 10 mg PO TID PRN 05/16/16 [History] Dabigatran [Pradaxa] 150 mg PO BID 05/16/16 [History] Furosemide [Lasix] 20 mg PO DAILY 05/16/16 [History] Gabapentin [Neurontin] 600 mg PO TID 05/16/16 [History] Guaifenesin [Mucinex] 400 mg PO TID 05/16/16 [History] Lactobacillus Acidophilus [Acidophilus Lactobacillus] 1 cap PO TID 05/16/16 [ History] Melatonin/Pyridoxine HCl (B6) [Melatonin 3 mg Tablet] 6 mg PO HS 05/16/16 [ History] OxyCODONE Immed Rel [Roxicodone 5 MG] 5 mg PO Q4HR PRN 05/16/16 [History] Collagenase Oint [Santyl] 1 appl TP DAILY #2 tube 05/17/16 [Rx] Gentamicin Oint [Garamycin] 1 appl TP DAILY #2 tube 05/17/16 [Rx] Lisinopril [Zestril] 10 mg PO DAILY #30 tablet 06/07/16 [Rx] OxyCODONE/APAP 5/325 [Percocet 5/325 MG] 1 each PO Q6HR PRN #30 tablet 06/07/16 [Rx] Ascorbic Acid [Vitamin C] 500 mg PO BID #60 tablet 06/09/16 [Rx] Multivit/Ca/Min/Fe/FA [Thera M Plus] 1 tab PO DAILY #30 tablet 06/09/16 [Rx] Gkdtubjmvboe-Zqvs-Lsyklghx,Iso [Zosyn 3.375 gm/50 ml Galaxy] 3.375 gm IV Q8HR # 82 froz.piggy 06/10/16 [Rx] Allergies/Adverse Reactions: Allergies Gadolinium-Containing Contrast Medi Allergy (Verified 06/06/16 14:42) Hives Date of admission: 06/02/16 19:42 Primary care physician: Anna Dunham, Consults: 06/04/16 09:47 Consult to Nutrition [CONS] Routine Comment: extra protein in diet Consulting Provider: NUTRITION Reason for Dietary Consult: Supplemental Nutrition Diet Education 06/04/16 11:55 Consult to Occupational Therapy [CONS] Routine Comment: Evaluate, develop and implement POC Consult to Physical Therapy [CONS] Routine Comment: Evaluate, develop and implement POC 06/06/16 11:24 Consult to Invasive Line Access Team [CONS] Routine Reason for Consult: [facility] IV antibiotics Line Type: PICC PICC line indications: halfway Med/Antibiotic Time Notified: 11:25 Call Completed: Yes 06/06/16 15:33 Consult to Invasive Line Access Team [CONS] Routine Reason for Consult: Picc Line Insertion Line Type: PICC 06/03/16 08:05 Consult to Surgery [CONS] Routine Consulting Provider: Katelynn Mayorga Reason for Consult: Sacral decubitus ulcer Call Completed: Yes Discharging clinician: Kimberly Duque - Patient Status Disposition: Home, Self-Care Condition: Fair Overall status at discharge: patient is progressing back to baseline - Discharge Instructions Instructions: Oxycodone/Acetaminophen (By mouth), Osteomyelitis (DC), Osteomyelitis (GEN), Autonomic Dysreflexia (GEN) Follow Up With: Anna Dunham CNP [Primary Care Provider] - 06/14/16 9:30 am Katelynn Mayorga MD [Partnered Physician] - 06/16/16 9:45 am (Wound care follow -up in the wound clinic with Dr. Mayorga) - Diet and Activity Activity: increase activity as tolerated Diet: low fat, low cholesterol (discharge home with home care) Hospital course: Please refer to prior discharge summary from 06/09/2016 - Time Spent with Patient Total time spent providing and/or coordinating discharge services: Greater than 30 minutes - Constitutional Vitals: Temp Pulse Resp BP Pulse Ox 97.7 F 105 18 121/72 96 06/10/16 07:01 06/10/16 07:01 06/10/16 07:01 06/10/16 07:01 06/10/16 07:01 General appearance: Present: cooperative, A&O X 3, answers questions appropriately - Respiratory Respiratory exam: Present: decreased breath sounds - Cardiovascular Cardiovascular exam: Present: RRR, +S1, +S2 - GI/Abdominal GI/Abdominal exam: Present: normal bowel sounds - Extremities Exam Extremities exam: Present: warm, radial pulses palpable and symetrical - VTE Documentation of Mechanical Device: Intermittent pneumatic compression device
[2016-06-10] MEDS: Ascorbic Acid 500 MG TABLET PO SCH (10:19)
[2016-06-10] MEDS: Furosemide 20 MG TABLET PO SCH (10:19)
[2016-06-10] MEDS: Lactobacillus 1 EACH CAP.SPRINK PO SCH (10:19)
[2016-06-10] MEDS: Multivit/Ca/Min/Fe/FA 1 TAB TABLET PO SCH (10:19)
[2016-06-10] MEDS: Baclofen 10 MG TABLET PO SCH (10:20)
[2016-06-10] MEDS: Gabapentin 300 MG CAPSULE PO SCH (10:20)
[2016-06-10] MEDS: *HR* Dabigatran 150 MG CAPSULE PO SCH (10:20)
[2016-06-10] MEDS: GuaiFENesin Liq 200 MG/10 ML UDC PO SCH (10:21)
[2016-06-10] MEDS: Patient Taking Own Medication 1 EACH RC SCH (10:21)
== END 2016-06-10 11:23 | disposition home or self-care (01) | DRG 981 ==
LOC: 3ANU 12:44 → EMEROO 12:44 → 3ANU 16:02 → SUATTDRO 19:42
PROVIDERS: ADMIT Internal Medicine; ATTEND Internal Medicine

== ENCOUNTER 2020-04-21 14:34 | Observation (INO) ==
[2020-04-21] MEDS ORDERED: 0.9 % Sodium Chloride 1,000 ML IVC ONE (14:50)
[2020-04-21] MEDS ORDERED: *HR* Dextrose 50 % in Water (Vial) 50 ML VIAL IVP PRN (17:24)
[2020-04-21] MEDS ORDERED: Dextrose Gel 15 GM/37.5 ML TUBE PO PRN ×2 (17:24)
[2020-04-21] MEDS ORDERED: D5% in Water 1,000 ML IVC PRN (17:24)
[2020-04-21] MEDS ORDERED: Ondansetron 4 MG/2 ML VIAL IVP PRN (17:31)
[2020-04-21] MEDS ORDERED: Naloxone 0.4 MG/ML INJ IVP PRN (17:31)
[2020-04-21] MEDS ORDERED: *HR* Heparin 5,000 UNIT/ML VIAL SQ SCH (22:00)
[2020-04-21] MEDS: Insulin LISPRO 300 UNITS/3 ML VIAL SQ SCH ×2 (22:06→22:07)
[2020-04-21] MEDS: 0.9 % Sodium Chloride 1,000 ML IVC SCH (22:10)
[2020-04-21] MEDS: Famotidine 20 MG TABLET PO SCH (22:11)
[2020-04-21] MEDS: Apixaban 5 MG TABLET PO SCH (22:12)
[2020-04-21] MEDS: Baclofen 10 MG TABLET PO SCH (22:13)
[2020-04-21] MEDS: Mirtazapine 15 MG TABLET PO SCH (22:13)
[2020-04-21] MEDS: Acetaminophen 325 MG TABLET PO SCH (22:13)
[2020-04-21] MEDS: calcium polycarbophiL 625 MG TABLET PO SCH (22:13)
[2020-04-21] MEDS: Gabapentin 400 MG CAPSULE PO SCH (22:13)
[2020-04-22 06:19] LABS: Basophils % 0.3 %; Eosinophils # 0.1 K/mcL (0.0-0.6); Eosinophils % 1.4 %; Hematocrit 31.2 % (37.5-50.1); Hemoglobin 9.9 g/dL (12.9-16.9); Immature Granulocytes % 0.6 % (0-4); Lymphocytes # 1.1 K/mcL (0.6-4.6); Lymphocytes % 13.6 %; Mean Corpuscular HGB Conc 31.7 g/dL (31.6-35.5); Mean Corpuscular Hemoglobin 30.3 pg (28.0-33.3); Mean Corpuscular Volume 95.4 fL (83.0-100.0); Monocytes # 0.7 K/mcL (0.0-1.3); Monocytes % 8.6 %; Neutrophils # 5.9 K/mcL (1.6-8.9); Platelet Count 144 K/mcL (140-400); Red Blood Count 3.27 M/mcL (4.19-5.50); Red Cell Distribution Width 15.4 % (11.5-14.5); Segmented Neutrophils % 75.5 %; White Blood Count 7.8 K/mcL (4.3-11.1)
[2020-04-22 07:15] LABS: BUN/Creatinine Ratio 48 (6-26); Blood Urea Nitrogen 30 mg/dL (8-23); Calcium 8.4 mg/dL (8.6-10.3); Carbon Dioxide 24 mEq/L (23-29); Chloride 111 mEq/L (98-107); Glucose 145 mg/dL (70-105); Osmolality,Calculated 303 (280-300); Potassium 3.9 mEq/L (3.5-5.1); Sodium 142 mEq/L (136-145); eGFR For African Americans > 60 (> 60); eGFR For Non-African Americans > 60 (> 60)
[2020-04-22] MEDS: Insulin LISPRO 300 UNITS/3 ML VIAL SQ SCH ×4 (07:44→21:39)
[2020-04-22] MEDS ORDERED: Menthol 9.1 MG LOZENGE PO PRN (08:20)
[2020-04-22] MEDS: 0.9 % Sodium Chloride 1,000 ML IVC SCH (08:26)
[2020-04-22] MEDS: Baclofen 10 MG TABLET PO SCH ×2 (08:31→21:22)
[2020-04-22] MEDS: Multivit/Ca/Min/Fe/FA 1 TAB TABLET PO SCH (08:32)
[2020-04-22] MEDS: Acetaminophen 325 MG TABLET PO SCH ×4 (08:32→21:20)
[2020-04-22] MEDS: Apixaban 5 MG TABLET PO SCH ×2 (08:33→21:22)
[2020-04-22] MEDS: Cholecalciferol (D-3) 1,000 UNIT (25MCG) TABLET PO SCH (08:33)
[2020-04-22] MEDS: Loratadine 10 MG TABLET PO SCH (08:33)
[2020-04-22] MEDS: calcium polycarbophiL 625 MG TABLET PO SCH ×3 (08:33→21:22)
[2020-04-22] MEDS ORDERED: Ertapenem 1,000 MG in 0.9 % Sodium Chloride Mini Bag 100 ML IVPB SCH (09:00)
[2020-04-22] MEDS ORDERED: cefTRIAXone 1,000 MG in 0.9 % Sodium Chloride Mini Bag 100 ML IVPB SCH (09:00)
[2020-04-22] MEDS: Nystatin Cream 15 GM TUBE TP SCH (09:13)
[2020-04-22] MEDS: Famotidine 20 MG TABLET PO SCH (21:21)
[2020-04-22] MEDS: Mirtazapine 15 MG TABLET PO SCH (21:21)
[2020-04-22] MEDS: Gabapentin 400 MG CAPSULE PO SCH (21:22)
[2020-04-23] MEDS ORDERED: Mag Hydrox/Al Hydrox/Simeth 30 ML UDC PO PRN (01:27)
[2020-04-23] MEDS: Insulin LISPRO 300 UNITS/3 ML VIAL SQ SCH ×2 (07:44→12:45)
[2020-04-23] MEDS: calcium polycarbophiL 625 MG TABLET PO SCH (08:38)
[2020-04-23] MEDS: Multivit/Ca/Min/Fe/FA 1 TAB TABLET PO SCH (08:38)
[2020-04-23] MEDS: Baclofen 10 MG TABLET PO SCH (08:38)
[2020-04-23] MEDS: Cholecalciferol (D-3) 1,000 UNIT (25MCG) TABLET PO SCH (08:38)
[2020-04-23] MEDS: Acetaminophen 325 MG TABLET PO SCH (08:38)
[2020-04-23] MEDS: Loratadine 10 MG TABLET PO SCH (08:38)
[2020-04-23] MEDS: Apixaban 5 MG TABLET PO SCH (08:39)
[2020-04-23] MEDS: Nystatin Cream 15 GM TUBE TP SCH (08:52)
[2020-04-23] MEDS ORDERED: cefTRIAXone 1,000 MG in Water for inj. (sterile) 10 ML IVP SCH (09:00)
[2020-04-23] MEDS ORDERED: *HR* HYDROcodone/Acet 5/325 mg TABLET PO ONE (09:57)
[2020-04-23 11:08] VITALS: BP 172/89
== END 2020-04-23 14:07 | disposition home or self-care (01) ==
LOC: 3ANU 14:34 → EMEROOARM 14:34 → SUATTDRO 16:48 → 3ANU 20:00
PROVIDERS: ADMIT Student in an Organized Health Care Education/Training Program; ATTEND Family Medicine